=== PATIENT | female | born 1940 | race Caucasian/White ===

== ENCOUNTER → 2019-06-13 13:19 | Outpatient (CLI) | payer MEDICARE, SELFPAY ==
--- NOTE | ~2019-06-13 | MM_ITS ---
EXAMINATION: MM screening [facility] BI w autumn HISTORY: Screening mammogram, history of left breast cancer TECHNIQUE: Craniocaudal and mediolateral oblique 3-D tomosynthesis images were obtained and synthetic 2-D images were generated. CAD analysis was submitted and interpreted. COMPARISON: 07/26/2017, 07/08/2016, 07/02/2015 BREAST PARENCHYMAL COMPOSITION: There are scattered areas of fibroglandular density. FINDINGS: Scattered benign-appearing calcifications are present. There is no evidence of suspicious m ass, calcification, or architectural distortion to suggest malignancy in either breast. There has bee n no suspicious interval change. IMPRESSION: 1. No mammographic evidence of malignancy. 2. Recommend routine screening mammography in one year. BI-RADS Category 2: Benign finding(s). Reviewed, dictated and finalized at location A. N HOUSE MANAGER
== END ==
PROVIDERS: PCP Family Medicine Adolescent Medicine; Visit Provider Obstetrics & Gynecology
DX: Z12.31 Encounter for screening mammogram for malignant neoplasm of breast (principal)
CPT/HCPCS: 77063; 77067

== ENCOUNTER 2020-03-11 01:30 | Outpatient (CLI) | payer MEDICARE, SELFPAY ==
[2020-03-11 20:50] LABS: SARS-CoV-2 RNA PCR Negative
== END 2020-03-11 01:31 | disposition home or self-care (01) ==
LOC: ANHCOVIDDT 01:32
PROVIDERS: PCP Family Medicine Adolescent Medicine; Visit Provider Internal Medicine Gastroenterology
DX: Z01.812 Encounter for preprocedural laboratory examination (principal); Z20.828 Contact with and (suspected) exposure to other viral communicable diseases
CPT/HCPCS: 87635; C9803; U0003

== ENCOUNTER 2020-03-13 01:49 | Day surgery (SDC) | payer MEDICARE, SELFPAY ==
[2020-03-06 12:46] VITALS: BMI 26.8
[2020-03-13 08:47] VITALS: BP 118/58; PULSE 76; RESP 16; TEMP 36.1; O2SAT 100
--- NOTE | 2020-03-13 08:51 | WPDANESEPPF ---
Anes - Initial Pre Proc Eval Procedure: Operation Date: 03/13/20 09:30 Proposed Procedures p Esophagogastroduodenoscopy & Colonoscopy - Eric Granados MD Date/Time: 03/13/20 08:51 Surgeon: Eric Granados MD Pre Op Diagnosis: Iron Deficient Anemia Patient Data Age: 79 Gender: F Height: 1.63 m Weight: 69.2 kg Last Vital Signs Temp 36.1 C L 03/13/20 08:47 Pulse 76 03/13/20 08:47 Resp 16 03/13/20 08:47 BP 118/58 L 03/13/20 08:47 Pulse Ox 100 03/13/20 08:47 Allergies Allergy/AdvReac Type Severity Reaction Status Date / Time No Known Allergies Allergy Verified 03/13/20 08:45 Home Medications Medication Instructions Recorded Confirmed Type acyclovir 200 mg PO BID 03/06/20 03/06/20 History amiodarone [Pacerone] 100 mg PO BID 03/06/20 03/06/20 History apixaban [Eliquis] 5 mg PO BID 03/06/20 03/06/20 History azathioprine [Imuran] 75 mg PO DAILY 03/06/20 03/06/20 History azithromycin [Zithromax] 250 mg PO 3XW 03/06/20 03/06/20 History metoprolol tartrate 25 mg PO DAILY 03/06/20 03/06/20 History pantoprazole [Protonix] 40 mg PO DAILY 03/06/20 03/06/20 History prednisone 7.5 mg PO DAILY 03/06/20 03/06/20 History simvastatin [Zocor] 20 mg PO DAILY 03/06/20 03/06/20 History sulfamethoxazole-trimethoprim 1 tablet PO 3XW 03/06/20 03/06/20 History [Bactrim DS] tacrolimus 0.5 mg PO BID 03/06/20 03/06/20 History Patient hx anesthesia problems: none Family hx anesthesia problems: none PMFSH Past Medical History Medical History (Updated 03/13/20 @ 09:01 by Júnior Stallworth MD) Atrial flutter Breast CA Chronic GERD HTN (hypertension) Hypercholesterolemia Immunosuppressed status Overweight (BMI 25.0-29.9) Skin cancer Surgical History Surgical History (Updated 03/13/20 @ 09:01 by Júnior Stallworth MD) Lung transplant status, bilateral Social History Social History Substance use type: does not use Living arrangements: with family Gender identity (if verbalized by the patient): Female Spiritual care concerns: No Anes - Eval Final PreProcedure Day of Procedure 03/13/20 08:51 Patient weight: overweight Heart: regular rate and rhythm Lungs: clear to auscultation and normal air movement Airway: Mallampati scale class II Neurological: alert and oriented Last oral intake: >/= 8 hours ASA classification: III Emergent: no Anesthetic plan: proceed Anesthesia type and monitoring: general GIVS Informed Consent: The patient's anesthetic plan and its attendant risks and benefits were discussed with the patient/family/POA. Questions were solicited and answers provided to the satisfaction of the patient/family/POA.
[2020-03-13] MEDS: LACTATED RINGERS 1,000 ML 150 ML IV CONT (09:14)
--- NOTE | 2020-03-13 09:14 | WPDGICN ---
Assessment and Plan Assessment and plan (1) Anemia: Code(s): D64.9 - Anemia, unspecified Status: Acute Assessment and Plan: Patient has anemia which is progressive and persistent. No obvious signs of blood loss. GI endoscopy is requested to exclude internal bleeding. Patient has a risk factor of Eliquis anticoagulation. But no obvious bleeding described. Stool Hemoccult advised if GI endoscopy unremarkable. (2) Atrial flutter: Code(s): I48.92 - Unspecified atrial flutter Status: Acute Assessment and Plan: Eliquis anticoagulation will be held prior to endoscopy. (3) Lung transplant status, bilateral: Code(s): Z94.2 - Lung transplant status Status: Acute (4) Immunosuppressed status: Code(s): D84.9 - Immunodeficiency, unspecified Status: Acute GI Consult Note Consult date/time: 03/13/20 09:14 HPI: Loren Wells is a 79 year old female Seen in evaluation at the request of Dr. Kishan Garcia. Patient has a history of progressive anemia and for this reason I have been consulted. Patient denies any obvious blood in her stools. She most recent transfusion several weeks ago was accomplished. There has been a steady decline in hemoglobin since that time she denies any nose bleeds. She denies any bruises. She denies abdominal pain. Past medical history is significant for pulmonary fibrosis. She underwent a lung transplant 2015. She is on various immunosuppressant agents. Additionally she is on Eliquis for atrial flutter. Review of Systems Review of Systems: All systems reviewed & are unremarkable except as noted in HPI and below PMFSH Past Medical History Medical History Atrial flutter Breast CA Chronic GERD HTN (hypertension) Hypercholesterolemia Immunosuppressed status Overweight (BMI 25.0-29.9) Skin cancer Surgical History Surgical History (Updated 03/13/20 @ 09:01 by Júnior Stallworth MD) Lung transplant status, bilateral Social History Social History Substance use type: does not use Living arrangements: with family Gender identity (if verbalized by the patient): Female Spiritual care concerns: No Meds Home Medications and Allergies Home Medications Medication Instructions Recorded Confirmed Type acyclovir 200 mg PO BID 03/06/20 03/06/20 History amiodarone [Pacerone] 100 mg PO BID 03/06/20 03/06/20 History apixaban [Eliquis] 5 mg PO BID 03/06/20 03/06/20 History azathioprine [Imuran] 75 mg PO DAILY 03/06/20 03/06/20 History azithromycin [Zithromax] 250 mg PO 3XW 03/06/20 03/06/20 History metoprolol tartrate 25 mg PO DAILY 03/06/20 03/06/20 History pantoprazole [Protonix] 40 mg PO DAILY 03/06/20 03/06/20 History prednisone 7.5 mg PO DAILY 03/06/20 03/06/20 History simvastatin [Zocor] 20 mg PO DAILY 03/06/20 03/06/20 History sulfamethoxazole-trimethoprim 1 tablet PO 3XW 03/06/20 03/06/20 History [Bactrim DS] tacrolimus 0.5 mg PO BID 03/06/20 03/06/20 History Allergies Allergy/AdvReac Type Severity Reaction Status Date / Time No Known Allergies Allergy Verified 03/13/20 08:45 Vital Signs Vital Signs - 24 hr 03/13/20 08:47 Temperature 97.0 F L Pulse Rate 76 Respiratory Rate 16 Blood Pressure 118/58 L Pulse Oximetry 100 Exam Narrative: Exam Narrative: Physical exam reveals her to be alert. Vital signs stable. HEENT exam unremarkable. Lungs are clear to auscultation and percussion. Heart is without murmur or extra sounds. Abdominal exam bowel sounds are present soft nontender with no organomegaly. Digital external rectal exam normal.
[2020-03-13 10:10] VITALS: BP 112/57; PULSE 54; RESP 18; O2SAT 100
[2020-03-13 10:20] VITALS: BP 136/61; PULSE 58; RESP 20; O2SAT 100
== END 2020-03-13 10:51 | disposition home or self-care (01) ==
PROVIDERS: PCP Family Medicine Adolescent Medicine; Visit Provider Internal Medicine Gastroenterology
PROC: 0DJ08ZZ Inspection of Upper Intestinal Tract, Via Natural or Artificial Opening Endoscopic (ICD-10-PCS; CPT 43235; principal; 2020-03-13 09:30)
DX: C18.3 Malignant neoplasm of hepatic flexure (principal); D50.9 Iron deficiency anemia, unspecified; D12.3 Benign neoplasm of transverse colon; D12.5 Benign neoplasm of sigmoid colon; K63.5 Polyp of colon; K57.30 Diverticulosis of large intestine without perforation or abscess without bleeding; K64.8 Other hemorrhoids; I48.92 Unspecified atrial flutter; I10 Essential (primary) hypertension; E78.00 Pure hypercholesterolemia, unspecified; K21.9 Gastro-esophageal reflux disease without esophagitis; D84.9 Immunodeficiency, unspecified; Z85.3 Personal history of malignant neoplasm of breast; Z79.01 Long term (current) use of anticoagulants; Z94.2 Lung transplant status
CPT/HCPCS: 45380; 45381; 45385; 43235; 88305; J2704; J7120

== ENCOUNTER → 2020-03-26 11:20 | Outpatient (CLI) | payer MEDICARE, SELFPAY ==
[2020-03-26 11:45] LABS: Estimated Glomerular Filt Rate 15
== END ==
PROVIDERS: PCP Family Medicine Adolescent Medicine; Visit Provider Surgery
DX: C18.3 Malignant neoplasm of hepatic flexure (principal)
CPT/HCPCS: 99199

== ENCOUNTER → 2020-03-27 13:25 | Outpatient (CLI) | payer MEDICARE, SELFPAY ==
--- NOTE | ~2020-03-27 | CT_ITS ---
EXAMINATION: CT chest abdomen pelvis wo con DATE: 03/27/2020 13:46 INDICATION: Staging of malignant neoplasm of hepatic flexure of colon. History of breast cancer. TECHNIQUE: Computed tomography (CT) of the chest, abdomen, and pelvis was performed without intraveno us contrast. Automated exposure control and iterative reconstruction technique were employed. Exam do se: 766.71 mGy-cm total exam DLP. COMPARISON: 05/07/2010 PET/CT scan FINDINGS: CHEST CT: There is bilateral apical linear and reticular fibrotic change. No pulmonary mass lesion or pulmonary infiltrate or consolidation is evident. Cardiomegaly. Coronary artery calcification. No pericardial effusion. There is aortic calcification but no thoracic aortic aneurysm. No hilar or mediastinal mass lesion or lymphadenopathy. There are 2 sternal wire sutures at a displaced fracture of the lower sternal body near the xiphoid p rocess. ABDOMEN/PELVIS CT: There is hyperdensity of the hepatic parenchyma measuring up to 85 Hounsfield units, consistent with hemochromatosis. Splenic density by comparison is approximately 51 Hounsfield units. No hepatic space-occupying mass lesion. The gallbladder is present. No gallbladder wall thickening or pericholecystic fluid or fat stranding. No bile duct or pancreatic duct dilatation. No pancreatic ma ss lesion or calcification is evident. Normal splenic size. Normal morphology of the adrenal glands. No renal mass lesion. No urinary tract calculus or hydroureteronephrosis. There is calcification of the abdominal aorta and at the origins of the celiac and superior mesenteri c and renal arteries. No abdominal aortic aneurysm. There is calcification of the iliac arteries. No intraperitoneal or retroperitoneal or pelvic mass lesion or adenopathy or ascites is detected. The uterus, adnexa and urinary bladder are unremarkable although bladder evaluation is limited due to nearly complete evacuation. Normal appendix. Mild diverticulosis of the sigmoid colon. No CT evidence of diverticulitis. There is some soft tissue apparent thickening at the hepatic flexure the colon which may be consisten t with the clinically reported malignant neoplasm of the hepatic flexure of the colon. Otherwise no b owel wall thickening, pneumatosis or intraperitoneal free air is evident. There are scattered small b owel air-fluid levels but no small bowel dilatation or obstruction is detected. No suspicious osteolytic or osteoblastic lesions are noted. There are degenerative changes of the cervical, thoracic and lumbar spine including moderately severe degenerative disease at L5-S1 in particular. IMPRESSION: Soft tissue thickening at the hepatic flexure colon may correspond to the clinical repor nitin malignant neoplasm of the hepatic flexure of the colon. No metastatic disease is evident. Diverticulosis of the sigmoid colon; no CT evidence of diverticulitis Hemachromatosis of the liver Cardiomegaly, coronary artery and aortic calcification Reviewed, dictated and finalized at Location A. Reviewed, dictated and finalized at location B. RTMENT CHAIRPERSON IMPRESSION: Soft tissue thickening at the hepatic flexure colon may correspond to the clinical reported malignant neoplasm of the hepatic flexure of the colo n. No metastatic disease is evident. Diverticulosis of the sigmoid colon; no CT evidence of diverticulitis Hemachromatosis of the liver Cardiomegaly, coronary artery and aortic calcification
== END ==
PROVIDERS: PCP Family Medicine Adolescent Medicine; Visit Provider Surgery
DX: C18.3 Malignant neoplasm of hepatic flexure (principal); K57.30 Diverticulosis of large intestine without perforation or abscess without bleeding; I51.7 Cardiomegaly
CPT/HCPCS: 71250; 74176

== ENCOUNTER → 2020-08-21 13:32 | Outpatient (CLI) | payer MEDICARE, SELFPAY ==
--- NOTE | ~2020-08-21 | MM_ITS ---
EXAMINATION: MM screening [facility] BI w autumn HISTORY: Screening TECHNIQUE: Craniocaudal and mediolateral oblique 3-D tomosynthesis images were obtained and synthetic 2-D images were generated. CAD analysis was submitted and interpreted. COMPARISON: Comparison to multiple prior studies sequentially, with oldest reviewed study dated 07/01. BREAST PARENCHYMAL COMPOSITION: There are scattered areas of fibroglandular density. FINDINGS: There are developing clustered calcifications mid posterior aspect of the right breast on C C view and lower outer quadrant of the left breast. There are lumpectomy changes in the left breast. IMPRESSION: 1. Developing clustered coarse calcifications in both breasts. 2. Spot magnification views recommended. BI-RADS Category 0: Incomplete: Needs additional imaging evaluation. Reviewed, dictated and finalized at location A.
== END ==
PROVIDERS: PCP Family Medicine Adolescent Medicine; Visit Provider Obstetrics & Gynecology
DX: Z12.31 Encounter for screening mammogram for malignant neoplasm of breast (principal); R92.8 Other abnormal and inconclusive findings on diagnostic imaging of breast
CPT/HCPCS: 77063; 77067

== ENCOUNTER → 2020-09-22 07:44 | Outpatient (CLI) | payer MEDICARE, SELFPAY ==
--- NOTE | ~2020-09-22 | MM_ITS ---
EXAMINATION: MM diagnostic mammo BI HISTORY: Follow-up bilateral breast calcifications TECHNIQUE: Additional 3-D tomosynthesis images of the breasts were performed and synthetic 2-D images were generated. CAD analysis was submitted and interpreted. COMPARISON: Comparison to multiple prior studies sequentially, with oldest reviewed study dated 07/02. BREAST PARENCHYMAL COMPOSITION: Breast composed of scattered areas of fibroglandular density. FINDINGS: There are clustered coarse calcifications in the lower outer quadrant of the left breast an d central posterior aspect of the right breast on CC view, medially which have an actual appearance. These are likely benign dystrophic calcifications. IMPRESSION: 1. Probable benign bilateral breast calcifications. 2. 6 month follow-up diagnostic bilateral mammogram is recommended. BI-RADS category 3, probably benign findings. Reviewed, dictated and finalized at location A.
== END ==
PROVIDERS: PCP Family Medicine Adolescent Medicine; Visit Provider Obstetrics & Gynecology
DX: R92.1 Mammographic calcification found on diagnostic imaging of breast (principal)
CPT/HCPCS: 77066

== ENCOUNTER 2021-03-10 00:56 | Day surgery (SDC) | payer MEDICARE, SELFPAY ==
[2021-02-23 14:09] VITALS: BMI 24.0
[2021-03-10 07:53] VITALS: BP 149/77; PULSE 73; RESP 20; TEMP 36.3; O2SAT 99
[2021-03-10] MEDS: LACTATED RINGERS 1,000 ML 150 ML IV CONT (07:55)
--- NOTE | 2021-03-10 07:57 | WPDANESEPPF ---
Anes - Initial Pre Proc Eval Procedure: Operation Date: 03/10/21 08:45 Proposed Procedures p Colonoscopy - Eric Granados MD Date/Time: 03/10/21 07:57 Surgeon: Eric Granados MD Pre Op Diagnosis: hx of colon ca Patient Data Age: 80 Gender: F Height: 1.6 m Weight: 60.4 kg Last Vital Signs Temp 36.3 C L 03/10/21 07:53 Pulse 73 03/10/21 07:53 Resp 20 03/10/21 07:53 BP 149/77 H 03/10/21 07:53 Pulse Ox 99 03/10/21 07:53 Allergies Allergy/AdvReac Type Severity Reaction Status Date / Time No Known Allergies Allergy Verified 03/10/21 07:30 Home Medications Medication Instructions Recorded Confirmed Type acyclovir 200 mg PO BID 03/06/20 02/23/21 History apixaban [Eliquis] 5 mg PO BID 03/06/20 02/23/21 History metoprolol tartrate 25 mg PO DAILY 03/06/20 02/23/21 History pantoprazole [Protonix] 40 mg PO DAILY 03/06/20 02/23/21 History prednisone 7.5 mg PO DAILY 03/06/20 02/23/21 History sulfamethoxazole-trimethoprim 1 tablet PO 3XW 03/06/20 02/23/21 History [Bactrim DS] tacrolimus 0.5 mg PO BID 03/06/20 02/23/21 History Patient hx anesthesia problems: none Family hx anesthesia problems: none Results Review: All pre-operative results and documents have been reviewed as part of the pre-operative evaluation. [facility] Past Medical History Medical History Anemia recieves iron infusions weekly Atrial flutter Breast CA Chronic GERD History of blood transfusion HTN (hypertension) Hypercholesterolemia Immunosuppressed status Overweight (BMI 25.0-29.9) Skin cancer Surgical History Surgical History History of lumpectomy left breast Lung transplant status, bilateral Family History Family History Mother Diabetes mellitus Sibling Diabetes mellitus Social History Social History (Reviewed 03/20/20 @ 16:25 by THERESA Helton Smoking status: Never smoker Alcohol intake: never Substance use: never Substance use type: does not use Living arrangements: with family Gender identity (if verbalized by the patient): Female Spiritual care concerns: No Anes - Eval Final PreProcedure Day of Procedure 03/10/21 07:57 Patient weight: normal Heart: regular rate and rhythm Lungs: clear to auscultation and normal air movement Airway: Mallampati scale class II Neurological: alert and oriented Last oral intake: >/= 8 hours ASA classification: III Emergent: no Anesthetic plan: proceed Anesthesia type and monitoring: general GIVS Results Review: All pre-operative results and documents have been reviewed as part of the pre-operative evaluation. Informed Consent: The patient's anesthetic plan and its attendant risks and benefits were discussed with the patient/family/POA. Questions were solicited and answers provided to the satisfaction of the patient/family/POA.
--- NOTE | 2021-03-10 08:37 | WPDGICN ---
Assessment and Plan Assessment and plan (1) History of colon cancer: Code(s): Z85.038 - Personal history of other malignant neoplasm of large intestine Status: Acute Assessment and Plan: Patient has a history of colon cancer resected in April of 2020. Plan is for surveillance colonoscopy now and at intervals in the future. (2) Lung transplant status, bilateral: Code(s): Z94.2 - Lung transplant status Status: Acute GI Consult Note Consult date/time: 03/10/21 08:37 HPI: Loren Wells is a 80 year old female Presents for surveillance colonoscopy. Patient has a distant history of bilateral lung transplant 2016 because of pulmonary fibrosis. One year ago in March was identified as having colon cancer. Patient subsequently underwent colon surgery by Dr. Patel. She has done well since that time. She presents today for follow-up colonoscopy. Patient reports that her current weight appetite bowel movements are normal. She denies abdominal pain. She has had no bleeding. Family history is noncontributory. Review of Systems Review of Systems: All systems reviewed & are unremarkable except as noted in HPI and below PMFSH Past Medical History Medical History Anemia recieves iron infusions weekly Atrial flutter Breast CA Chronic GERD History of blood transfusion HTN (hypertension) Hypercholesterolemia Immunosuppressed status Overweight (BMI 25.0-29.9) Skin cancer Surgical History Surgical History History of lumpectomy left breast Lung transplant status, bilateral Family History Family History Mother Diabetes mellitus Sibling Diabetes mellitus Social History Social History Smoking status: Never smoker Alcohol intake: never Substance use: never Substance use type: does not use Living arrangements: with family Gender identity (if verbalized by the patient): Female Spiritual care concerns: No Meds Home Medications and Allergies Home Medications Medication Instructions Recorded Confirmed Type acyclovir 200 mg PO BID 03/06/20 02/23/21 History apixaban [Eliquis] 5 mg PO BID 03/06/20 02/23/21 History metoprolol tartrate 25 mg PO DAILY 03/06/20 02/23/21 History pantoprazole [Protonix] 40 mg PO DAILY 03/06/20 02/23/21 History prednisone 7.5 mg PO DAILY 03/06/20 02/23/21 History sulfamethoxazole-trimethoprim 1 tablet PO 3XW 03/06/20 02/23/21 History [Bactrim DS] tacrolimus 0.5 mg PO BID 03/06/20 02/23/21 History Allergies Allergy/AdvReac Type Severity Reaction Status Date / Time No Known Allergies Allergy Verified 03/10/21 07:30 Vital Signs Vital Signs - 24 hr 03/10/21 07:53 Temperature 97.4 F L Pulse Rate 73 Respiratory Rate 20 Blood Pressure 149/77 H Pulse Oximetry 99 Exam Narrative: Physical exam reveals patient be alert. Vital signs stable. HEENT exam is unremarkable. Patient is anicteric. Lungs are clear to auscultation and percussion. Heart is without murmur or extra sounds. Abdominal exam bowel sounds present soft nontender with no hepatosplenomegaly. Digital external rectal exam is normal.
[2021-03-10 09:07] VITALS: BP 96/53; PULSE 62; RESP 20; O2SAT 99
[2021-03-10 09:17] VITALS: BP 104/57; PULSE 61; RESP 22; O2SAT 100
[2021-03-10 09:27] VITALS: BP 127/66; PULSE 63; RESP 15; O2SAT 100
== END 2021-03-10 09:34 | disposition home or self-care (01) ==
PROVIDERS: PCP Family Medicine Adolescent Medicine; Visit Provider Internal Medicine Gastroenterology
PROC: 0DJD8ZZ Inspection of Lower Intestinal Tract, Via Natural or Artificial Opening Endoscopic (ICD-10-PCS; CPT 45378; principal; 2021-03-10 08:45)
DX: Z12.11 Encounter for screening for malignant neoplasm of colon (principal); Z85.038 Personal history of other malignant neoplasm of large intestine; K64.8 Other hemorrhoids; K57.30 Diverticulosis of large intestine without perforation or abscess without bleeding; K63.5 Polyp of colon; Z94.2 Lung transplant status; D50.9 Iron deficiency anemia, unspecified; K21.9 Gastro-esophageal reflux disease without esophagitis; I10 Essential (primary) hypertension; E78.00 Pure hypercholesterolemia, unspecified; D84.9 Immunodeficiency, unspecified; Z85.3 Personal history of malignant neoplasm of breast; Z79.01 Long term (current) use of anticoagulants; I48.92 Unspecified atrial flutter
CPT/HCPCS: 45385; 88305; J7120

== ENCOUNTER → 2021-03-25 09:22 | Outpatient (CLI) | payer MEDICARE, SELFPAY ==
--- NOTE | ~2021-03-25 | MM_ITS ---
EXAMINATION: MM diagnostic [facility] BI w autumn HISTORY: Six-month follow-up for probably benign bilateral breast calcifications TECHNIQUE: Craniocaudal, mediolateral, and mediolateral oblique 3-D tomosynthesis images of the breas ts were performed and synthetic 2-D images were generated. Magnification views of the breasts were al so obtained. CAD analysis was submitted and interpreted. COMPARISON: 09/22/2020, 08/21/2020, 06/13/2019 BREAST PARENCHYMAL COMPOSITION: There are scattered areas of fibroglandular density. FINDINGS: There are stable dystrophic appearing calcifications in the far posterior third of both belkis asts at the 6:00 location. There has been no suspicious interval change. No associated mass or shiv ectural distortion is identified. In addition, there are no new areas of mass, architectural distorti on, or suspicious calcification in either breast. Lumpectomy changes and axillary lymph node dissecti on are noted on the left. IMPRESSION: 1. Stable, probably benign bilateral breast calcifications. 2. Recommend 6 month follow-up bilateral diagnostic mammogram. BI-RADS category 3, probably benign findings. Reviewed, dictated and finalized at location A. HOUSE WORKER
== END ==
PROVIDERS: PCP Family Medicine Adolescent Medicine; Visit Provider Obstetrics & Gynecology
DX: N64.89 Other specified disorders of breast (principal); R92.8 Other abnormal and inconclusive findings on diagnostic imaging of breast
CPT/HCPCS: 77062; 77066; G0279

== ENCOUNTER 2021-05-22 13:53 | Emergency (ER) | payer MEDICARE, SELFPAY ==
[2021-05-22 14:02] VITALS: BP 183/78; PULSE 88; RESP 20; TEMP 36.5; O2SAT 99
--- NOTE | 2021-05-22 14:16 | ED.BACK ---
HPI - Back Pain/Injury General Chief Complaint: Back Pain/Injury Stated Complaint: Back Pain Time Seen by Provider: 05/22/21 14:16 Source: patient and RN notes reviewed Mode of arrival: ambulatory Limitations: no limitations History of Present Illness HPI Narrative: 81-year-old female presents with concern for low back pain. Reports her back pain started several weeks ago and she began seeing a chiropractor who told her she had sciatica, she had a negative x-ray at the chiropractor. Reports throughout her course of treatment with the chiropractor her symptoms have worsened. Reports she has needed to use a walker for mobility since seeing a chiropractor. Patient reports she is a double lung transplant patient and followed up with her transplant physician who recommended she be seen and recommended cyclobenzaprine. Patient denies loss of bowel or bladder function, abdominal pain, fever MD elicited complaint: back pain Related Data Home Medications Medication Instructions Recorded Confirmed acyclovir 200 mg PO BID 03/06/20 05/22/21 apixaban [Eliquis] 5 mg PO BID 03/06/20 05/22/21 metoprolol tartrate 25 mg PO DAILY 03/06/20 05/22/21 pantoprazole [Protonix] 40 mg PO DAILY 03/06/20 05/22/21 prednisone 7.5 mg PO DAILY 03/06/20 05/22/21 sulfamethoxazole-trimethoprim 1 tablet PO 3XW 03/06/20 05/22/21 [Bactrim DS] tacrolimus 0.5 mg PO BID 03/06/20 05/22/21 amoxicillin 500 mg PO DAILY 05/22/21 05/22/21 azathioprine 50 mg PO DAILY 05/22/21 05/22/21 cholecalciferol (vitamin D3) 10 mcg PO DAILY 05/22/21 05/22/21 Allergies Allergy/AdvReac Type Severity Reaction Status Date / Time NSAIDS (Non-Steroidal AdvReac Other Verified 05/22/21 14:35 Anti-Inflamma Review of Systems Review of Systems: CONSTITUTIONAL: Denies malaise, chills, sweats, or fever. CARDIOVASCULAR: Denies chest pain, palpitations, or edema. RESPIRATORY: Denies cough or dyspnea. GASTROINTESTINAL: Denies abdominal pain, nausea, vomiting, diarrhea, loss of bowel function GENITOURINARY: Denies dysuria, hematuria, frequency, loss of bladder function. SKIN: Denies rash or itching. MUSCULOSKELETAL: Reports low back pain NEUROLOGIC: Denies numbness, weakness, or headache. All systems reviewed & are unremarkable except as noted in HPI and below PMFSH Past Medical History Medical History Anemia recieves iron infusions weekly Atrial flutter Breast CA Chronic GERD History of blood transfusion HTN (hypertension) Hypercholesterolemia Immunosuppressed status Overweight (BMI 25.0-29.9) Skin cancer Surgical History Surgical History History of lumpectomy left breast Lung transplant status, bilateral Family History Family History Mother Diabetes mellitus Sibling Diabetes mellitus Social History Social History Smoking status: Never smoker Alcohol intake: never Substance use: never Substance use type: does not use Gender identity (if verbalized by the patient): Female Spiritual care concerns: No Comments At time of signature, agree with nursing past medical, surgical, social and family history. There is no relevant family history pertinent to the presenting complaint Exam Narrative: GENERAL: Well-appearing, well-nourished, and in no acute distress. HEAD: Normocephalic, atraumatic. EYES: PERRLA and EOMI. NECK: Supple. No lymphadenopathy. CHEST: Clear to auscultation. No respiratory distress. HEART: Regular rate and rhythm. Distal pulses palpable and equal, cap refill <3 seconds ABDOMEN: Soft, nontender, nondistended, normal active bowel sounds, no palpable or pulsatile masses. No CVA tenderness MUSCULOSKELETAL: Normal range of motion and strength in all extremities; 5/5 strength with hip flexion and extension, dorsiflexio
== END 2021-05-22 15:00 | disposition home or self-care (01) ==
PROVIDERS: Emergency Provider Nurse Practitioner; PCP Family Medicine Adolescent Medicine
DX: M54.50 Low back pain, unspecified (principal); D64.9 Anemia, unspecified; I48.92 Unspecified atrial flutter; Z85.3 Personal history of malignant neoplasm of breast; I10 Essential (primary) hypertension; E78.00 Pure hypercholesterolemia, unspecified; Z85.828 Personal history of other malignant neoplasm of skin
CPT/HCPCS: 99213; G0463

== ENCOUNTER 2021-05-25 10:12 | Emergency (ER) | payer MEDICARE, SELFPAY ==
--- NOTE | ~2021-05-25 | CT_ITS ---
EXAMINATION: CT lumbar spine wo con EXAM DATE: 05/25/2021 12:53 INDICATION: Low back pain. TECHNIQUE: Spiral CT of the lumbar spine was performed without contrast. Axial, coronal and sagittal images lumbar spine were reviewed. The dose-length product (DLP) for this examination was 446.40 mG y-cm. The exposure was tailored according to patient size (auto mA exposure control), and iterative reconstruction (ASIR) was used as additional dose reduction technique. There is no prior lumbar CT for comparison. FINDINGS: There is sacral fracture at the S1-S2 junction identified on the sagittal sequence, involvi ng both sacral ala, which was not present on a prior CT abdomen pelvis scan from March. Could be a cute or early subacute fracture, without sclerosis identified. Consider insufficiency fracture if pat ient has no history of trauma. There is mild to moderate disc disease at L5-S1, mild disc disease at the other thoracolumbar levels. There is moderate lumbar facet arthropathy from L3 through S1, mild at the other thoracolumbar level s. Mild lower lumbar central canal and neural foraminal stenosis. The vertebral bodies are aligned in the AP dimension. Paraspinal soft tissue is unremarkable. IMPRESSION: 1. Bilateral sacral ala acute to early subacute insufficiency fractures. 2. Mild to moderate lumbar spondylosis. Reviewed, dictated and finalized at location G. RVISOR LENS GENERATING
[2021-05-25 10:50] VITALS: BP 136/84; PULSE 99; RESP 18; TEMP 36.6; O2SAT 100
[2021-05-25 11:50] VITALS: BP 136/84; PULSE 99; RESP 18; O2SAT 100
--- NOTE | 2021-05-25 12:02 | ED.BACK ---
HPI - Back Pain/Injury General Chief Complaint: Back Pain/Injury Stated Complaint: low back pain Time Seen by Provider: 05/25/21 11:54 Source: patient Mode of arrival: ambulatory Limitations: no limitations History of Present Illness HPI Narrative: Patient is 81 years old white female presents with pain across lumbar area started 1 month ago. Patient is telling me that 1 month ago was trying to go up 1 step and felt something in her back. Gradually getting worse. Patient been seen by urgent care and the chiropractor without major improvement. Currently patient on hydrocodone and Flexeril. Patient started using a walker over the last 2 to 3 weeks. Pain gets worse with standing, walking or any movement, gets better if she remaining still. Patient denies any fever, chills, nausea, vomiting, diarrhea, constipation, abdominal pain, chest pain, shortness of breath. Patient lives with her , came to the emergency room by private car. History of hypertension, lung transplantation 5 years ago. Related Data Home Medications Medication Instructions Recorded Confirmed acyclovir 200 mg PO BID 03/06/20 05/22/21 apixaban [Eliquis] 2.5 mg PO BID 03/06/20 05/22/21 metoprolol tartrate 25 mg PO DAILY 03/06/20 05/22/21 pantoprazole [Protonix] 40 mg PO DAILY 03/06/20 05/22/21 prednisone 7.5 mg PO DAILY 03/06/20 05/22/21 sulfamethoxazole-trimethoprim 1 tablet PO 3XW 03/06/20 05/22/21 [Bactrim DS] tacrolimus 0.5 mg PO BID 03/06/20 05/22/21 amoxicillin 500 mg PO DAILY 05/22/21 05/22/21 azathioprine 50 mg PO DAILY 05/22/21 05/22/21 cholecalciferol (vitamin D3) 10 mcg PO DAILY 05/22/21 05/22/21 Allergies Allergy/AdvReac Type Severity Reaction Status Date / Time NSAIDS (Non-Steroidal AdvReac Other Verified 05/25/21 11:53 Anti-Inflamma Review of Systems Review of Systems: CONSTITUTIONAL: Denies fever, chills, or sweats. EYES: Denies visual changes, redness, or discharge. ENT: Denies rhinorrhea, congestion, sore throat, or otalgia. CARDIOVASCULAR: Denies chest pain, palpitations, or edema. RESPIRATORY: Denies cough or dyspnea. GASTROINTESTINAL: Denies abdominal pain, nausea, vomiting, or diarrhea. GENITOURINARY: Denies dysuria or hematuria. SKIN: Denies rash or itching. MUSCULOSKELETAL: Lower back pain NEUROLOGIC: Denies headache, numbness, or weakness. PSYCHIATRIC: Denies anxiety or depression. PMFSH Past Medical History Medical History Anemia recieves iron infusions weekly Atrial flutter Breast CA Chronic GERD History of blood transfusion HTN (hypertension) Hypercholesterolemia Immunosuppressed status Overweight (BMI 25.0-29.9) Skin cancer Surgical History Surgical History History of lumpectomy left breast Lung transplant status, bilateral Family History Family History Mother Diabetes mellitus Sibling Diabetes mellitus Social History Social History Smoking status: Never smoker Alcohol intake: never Substance use: never Substance use type: does not use Gender identity (if verbalized by the patient): Female Spiritual care concerns: No Exam Narrative: General appearance: Well-developed, well-nourished Skin: Normal color Head: Normocephalic, nontraumatic Eyes: Clear conjunctiva ENT: Oropharynx normal, ears normal, nose normal Neck: Supple, nontender Chest and respiratory: Airway patent, no respiratory distress, no accessory muscle use Heart: Regular rate/rhythm Abdomen: Soft, nontender, no organomegaly, quiet bowel sounds Vascular: Normal peripheral pulses, normal capillary refill. Musculoskeletal: Mild limited range of motion of the back at the lumbar area, no bruises, no swelling, no rash, no focal tenderness. Neurologic: Alert and oriented ?3, BOSOM PRESSER is normal as tested, no gross motor de
[2021-05-25] MEDS: ONDANSETRON INJ 4 MG/2 ML VIAL IV PUSH (13:00)
[2021-05-25] MEDS: MORPHINE SULFATE (*CRX) 4 MG/ML INJ IV PUSH (13:00)
[2021-05-25 13:05] VITALS: BP 143/77; PULSE 89; RESP 14; O2SAT 99
[2021-05-25 13:08] LABS: Hematocrit 34.1 % (37.0-47.0); Hemoglobin 11.1 g/dL (12.0-15.0); Immature Granulocyte Percent A 1.1 % (0-0.5); Lymphocytes Absolute Auto 0.24 K/mm3 (0.9-3.2); Lymphocytes Percent Auto 2.6 % (18.3-44.2); Mean Corpuscular HGB Conc 32.6 g/dl (32-36); Mean Corpuscular Hemoglobin 30.9 pg (26-34); Mean Platelet Volume 9.3 fl (7.4-10.4); Monocytes Absolute Auto 0.6 K/mm3 (0.1-0.6); Neutrophils Absolute Auto 8.3 K/mm3 (1.3-6.7); Neutrophils Percent Auto 90.3 % (45.5-73.1); Platelet Count Result 224 k/mm3 (150-375); Red Blood Count 3.59 M/mm3 (4.2-5.4); Red Cell Distribution Width 13.4 % (11.5-14.5); White Blood Count 9.2 K/mm3 (4.5-10.0)
[2021-05-25 13:09] VITALS: O2SAT 95
[2021-05-25 13:15] LABS: Alanine Aminotransferase 23 U/L (4-35); Albumin Level 3.9 g/dL (3.5-5.1); Alkaline Phosphatase 114 U/L (38-126); Anion Gap 12 mmol/L (8-16); Aspartate Amino Transferase 37 U/L (14-36); Bilirubin,Total 0.8 mg/dL (0.2-1.3); Blood Urea Nitrogen 52 mg/dL (7-17); Calcium 9.1 mg/dL (8.4-10.2); Carbon Dioxide 20 mmol/L (22-30); Chloride 100 mmol/L (98-107); Estimated CRCL calculation 21 ml/min; Estimated Glomerular Filt Rate 29; Glucose 163 mg/dL (65-110); Potassium 4.7 mmol/L (3.4-5.0); Sodium 132 mmol/L (137-145)
[2021-05-25 13:22] LABS: CRP 4.3 mg/dL (<1.0)
[2021-05-25 13:27] LABS: Ovalocytes 1+ (NORMAL); Platelet Estimate Adequate (Adequate)
[2021-05-25 14:10] LABS: Erythrocyte Sedimentation Rate 80 mm/hr (0-20)
[2021-05-25 14:30] VITALS: BP 137/77; PULSE 76; RESP 20; O2SAT 99
[2021-05-25 14:30] LABS: Add Urine Microscopic? NO; Appearance Urine Clear (Clear); Bilirubin Urine Negative (Negative); Blood Urine Negative (Negative); Color Urine Yellow (Yellow); Glucose Urine UA Negative (Negative); Ketones Urine Negative (Negative); Leukocyte Esterase Ur Negative LEU/UL (Negative); Nitrate Urine Negative (Negative); Protein Urine Negative (Negative); Specific Grav Ur 1.011 (1.001-1.035); Urobilinogen Urine Negative mg/dL (<2.0)
[2021-05-25 16:07] VITALS: BP 141/85; PULSE 82; RESP 22; O2SAT 97
== END 2021-05-25 16:33 | disposition home or self-care (01) ==
PROVIDERS: Emergency Provider Emergency Medicine; PCP Family Medicine Adolescent Medicine
DX: M84.48XA Pathological fracture, other site, initial encounter for fracture (principal); I10 Essential (primary) hypertension; D64.9 Anemia, unspecified; I48.92 Unspecified atrial flutter; Z94.2 Lung transplant status; E78.00 Pure hypercholesterolemia, unspecified; K21.9 Gastro-esophageal reflux disease without esophagitis; E66.3 Overweight; Z68.24 Body mass index [BMI] 24.0-24.9, adult; Z85.3 Personal history of malignant neoplasm of breast; Z85.828 Personal history of other malignant neoplasm of skin; Z79.01 Long term (current) use of anticoagulants; M47.816 Spondylosis without myelopathy or radiculopathy, lumbar region
CPT/HCPCS: 36415; 72131; 80053; 81003; 85025; 85652; 86140; 96374; 96375; 99284; J2270; J2405

== ENCOUNTER 2021-05-27 15:38 | Inpatient (IN) | payer MEDICARE, SELFPAY ==
--- NOTE | ~2021-05-27 | CT_ITS ---
EXAMINATION: CT chest abdomen pelvis w con DATE: 05/30/2021 12:27 INDICATION: Shortness of breath TECHNIQUE: Transaxial computed tomographic images of the chest, abdomen, and pelvis were obtained aft er the administration of 100 cc of Omnipaque 350 intravenous contrast. The dose-length product (DLP) was 745.10 mGy-cm. Automated exposure control and iterative reconstruction technique were employed. COMPARISON: 03/27/2020 FINDINGS: CHEST CT: There are small pleural effusions, right greater than left. Cardiomegaly is noted. There is an unchan ged mildly enlarged right lower paratracheal lymph node, likely reactive. There are diffuse interstit ial and airspace opacities throughout all lung zones, worst in the left lung than the right. There is no pneumothorax. There are surgical clips in the left axilla. There is mild thoracic spondylosis. ABDOMEN/PELVIS CT: The liver, spleen, pancreas, gallbladder, and adrenal glands are normal. The right kidney is unremark able. Cysts of the left kidney measure up to 12 mm. There is calcified atherosclerosis of the aorta a nd many of the other arteries. No pathologically enlarged abdominal or pelvic lymph nodes are identif ied. There is no free intraperitoneal gas or evidence of bowel obstruction. The bladder is partially decompressed by a Pedersen catheter. There are surgical changes of right hemicolectomy. Insufficiency fr actures have developed in the bilateral sacral ala. There is slight anterior subluxation of S1 on S2 which is new since the comparison examination. IMPRESSION: 1. Diffuse lung disease, consistent with pulmonary edema and/or pneumonia. 2. Cardiomegaly. 3. Interval development of bilateral sacral insufficiency fractures with possible unstable fracture a t S1-S2. Reviewed, dictated and finalized at location F. E OPERATOR IMPRESSION: 1. Diffuse lung disease, consistent with pulmonary edema and/or pneumonia. 2. Cardiomegaly. 3. Interval development of bilateral sacral insufficiency fractures with possib le unstable fracture at S1-S2.
--- NOTE | ~2021-05-27 | XR_ITS ---
EXAMINATION: XR chest 1V portable EXAM DATE: 05/28/2021 09:03 INDICATION: Leukocytosis . TECHNIQUE: Portable AP frontal chest x-ray was obtained. Comparison is made to prior examination from 06/08/2010. FINDINGS: Prominent bilateral reticulation, improvement compared to previous examination. Could be mi ld pulmonary edema given cardiomegaly and suspected small pleural effusions. Small amount of left upp er lobe more well-defined airspace disease which could be acute infectious process. Follow-up to [facility] recommended. No interstitial lung disease was suspected on prior CT from 2019. Left axillary s urgical clips. Biapical scarring. There are bony degenerative changes. IMPRESSION: 1. Possible left upper lobe pneumonia. Recommend follow-up x-ray in one month. 2. Cardiomegaly, small pleural effusions and possible mild pulmonary edema. Reviewed, dictated and finalized at location B. RPTION PLANT OPERATOR HELPER
--- NOTE | ~2021-05-27 | CT_ITS ---
EXAMINATION: CT lumbar spine wo con DATE: 05/27/2021 17:52 INDICATION: Low back pain. TECHNIQUE: Computed tomography (CT) of the lumbar spine was performed without intravenous contrast. A utomated exposure control and iterative reconstruction technique were employed. The dose-length produ ct was 322.24 mGy-cm. COMPARISON: CT lumbar spine 05/25/2021 FINDINGS: Again seen are fractures of the bilateral sacral ala, S2 segmenta, bilateral L5 transverse processes, and left L4 transverse process. Vertebral body heights are normal. There is moderately dec reased disc height at L5-S1. The following disc levels are specifically discussed: L1-L2: The disc is bulging. There is mild bilateral facet joint osteoarthritis. There is mild left ne ural foraminal stenosis. There is no central canal stenosis. L2-L3: The disc is bulging. There is severe right and moderate left facet joint osteoarthritis. There is mild bilateral neural foraminal stenosis. There is mild central canal stenosis. L3-L4: The disc is bulging. There is severe bilateral facet joint osteoarthritis. There is mild bilat eral neural foraminal stenosis. There is mild central canal stenosis. L4-L5: The disc is bulging. There is severe right and mild left facet joint osteoarthritis. There is mild bilateral neural foraminal stenosis. There is mild central canal stenosis. L5-S1: The disc is bulging. There is moderate right and severe left facet joint osteoarthritis. There is mild bilateral neural foraminal stenosis. There is mild central canal stenosis. IMPRESSION: 1. Acute/subacute fractures of the bilateral sacral ala, S2 segment, bilateral L5 transverse processe s, and left L4 transverse process again seen. 2. Mild lumbar spondylosis. Reviewed, dictated and finalized at location A. ION STYLING INTERN IMPRESSION: 1. Acute/subacute fractures of the bilateral sacral ala, S2 segment, bilateral L5 transverse processes, and left L4 transverse process again seen. 2. Mild lumbar spondylosis.
[2021-05-27 15:42] VITALS: BP 144/109; PULSE 125; RESP 28; TEMP 36.7; O2SAT 94
[2021-05-27] MEDS: ONDANSETRON INJ 4 MG/2 ML VIAL IV PUSH ×2 (17:31→23:40)
[2021-05-27] MEDS: HYDROmorphone HCL INJ (*CRX) 1 MG/ML SYR 0.5 MG IV PUSH ×2 (17:32→23:41)
[2021-05-27 17:43] LABS: Basophils Percent Auto 0.1 % (0.2-1.2); Eosinophils Percent Auto 0.1 % (0-4.4); Hematocrit 32.6 % (37.0-47.0); Hemoglobin 10.6 g/dL (12.0-15.0); Immature Granulocyte Absolute 0.13 K/mm3 (0.00-0.031); Immature Granulocyte Percent A 0.9 % (0-0.5); Lymphocytes Absolute Auto 0.59 K/mm3 (0.9-3.2); Lymphocytes Percent Auto 4.1 % (18.3-44.2); Mean Corpuscular HGB Conc 32.5 g/dl (32-36); Mean Corpuscular Hemoglobin 30.8 pg (26-34); Mean Corpuscular Volume 94.8 fl (80-100); Mean Platelet Volume 9.3 fl (7.4-10.4); Monocytes Absolute Auto 1.4 K/mm3 (0.1-0.6); Monocytes Percent Auto 9.7 % (2.6-8.5); Neutrophils Absolute Auto 12.1 K/mm3 (1.3-6.7); Neutrophils Percent Auto 85.1 % (45.5-73.1); Nucleated Red Blood Cells Perc 0.1 % (0.0-0.2); Platelet Count Result 267 k/mm3 (150-375); Red Blood Count 3.44 M/mm3 (4.2-5.4); Red Cell Distribution Width 13.9 % (11.5-14.5); White Blood Count 14.3 K/mm3 (4.5-10.0)
[2021-05-27 17:54] LABS: Alanine Aminotransferase 23 U/L (4-35); Albumin Level 3.6 g/dL (3.5-5.1); Alkaline Phosphatase 106 U/L (38-126); Anion Gap 10 mmol/L (8-16); Aspartate Amino Transferase 47 U/L (14-36); Bilirubin,Total 1.1 mg/dL (0.2-1.3); Blood Urea Nitrogen 55 mg/dL (7-17); Calcium 9.1 mg/dL (8.4-10.2); Carbon Dioxide 22 mmol/L (22-30); Chloride 101 mmol/L (98-107); Estimated CRCL calculation 19 ml/min; Estimated Glomerular Filt Rate 27; Glucose 129 mg/dL (65-110); Potassium 5.1 mmol/L (3.4-5.0); Sodium 133 mmol/L (137-145)
[2021-05-27 18:46] LABS: Add Urine Microscopic? YES; Appearance Urine Clear (Clear); Bilirubin Urine Negative (Negative); Blood Urine Negative (Negative); Color Urine Yellow (Yellow); Glucose Urine UA Negative (Negative); Ketones Urine Trace mg/dL (Negative); Leukocyte Esterase Ur 1+ LEU/UL (Negative); Nitrate Urine Negative (Negative); Protein Urine Negative (Negative); RBC Urine 0-2 /hpf (0-2); Specific Grav Ur 1.015 (1.001-1.035); Squamous Epithelial Cell Urine Rare /hpf (Few); Urobilinogen Urine Negative mg/dL (<2.0); WBC Urine 0-3 /hpf
--- NOTE | 2021-05-27 19:39 | ED.BACK ---
HPI - Back Pain/Injury General Chief Complaint: Back Pain/Injury Stated Complaint: back pain Time Seen by Provider: 05/27/21 16:49 Source: patient Mode of arrival: ambulatory History of Present Illness HPI Narrative: 81 history of double lung transplant here with a complaint of low back pain for past few weeks, she denies any trauma. Patient states that she has seen chiropractor this week had 3 adjustment which did not help with any pain however since this morning she is unable to withstand the pain. She denies any bladder or bowel incontinence. No numbness or tingling in the sacral area or in the legs. She states she is unable to walk secondary to pain MD elicited complaint: back pain Onset (ago): week(s) (1) Timing: constant Severity: severe Similar Symptoms Previously: No Quality: aching Location: sacrum Radiation: right upper leg Exacerbating factors: none Relieving factors: none Associated symptoms: denies other symptoms Related Data Home Medications Medication Instructions Recorded Confirmed acyclovir 200 mg PO BID 03/06/20 05/22/21 apixaban [Eliquis] 2.5 mg PO BID 03/06/20 05/22/21 metoprolol tartrate 25 mg PO DAILY 03/06/20 05/22/21 pantoprazole [Protonix] 40 mg PO DAILY 03/06/20 05/22/21 prednisone 7.5 mg PO DAILY 03/06/20 05/22/21 sulfamethoxazole-trimethoprim 1 tablet PO 3XW 03/06/20 05/22/21 [Bactrim DS] tacrolimus 0.5 mg PO BID 03/06/20 05/22/21 amoxicillin 500 mg PO DAILY 05/22/21 05/22/21 azathioprine 50 mg PO DAILY 05/22/21 05/22/21 cholecalciferol (vitamin D3) 10 mcg PO DAILY 05/22/21 05/22/21 Allergies Allergy/AdvReac Type Severity Reaction Status Date / Time NSAIDS (Non-Steroidal AdvReac Other Verified 05/25/21 11:53 Anti-Inflamma Review of Systems Review of Systems: All systems reviewed & are unremarkable except as noted in HPI and below Constitutional: Constitutional: Reports no additional constitutional complaints Eyes: Eyes: Reports no additional eye complaints ENT: Reports system reviewed and no additional complaints, except as documented Cardiovascular: Cardiovascular: Reports no additional cardiovascular complaints Respiratory: Respiratory: Reports no additional respiratory complaints Gastrointestinal: Gastrointestinal: Reports no additional gastrointestinal complaints Musculoskeletal: Musculoskeletal: Reports as per HPI Neurologic: Reports system reviewed and no additional complaints, except as documented Psychiatric: Psychiatric: Reports no additional psychiatric complaints Endocrine: Endocrine: Reports no additional endocrine complaints PMFSH Past Medical History Medical History Anemia recieves iron infusions weekly Atrial flutter Breast CA Chronic GERD History of blood transfusion HTN (hypertension) Hypercholesterolemia Immunosuppressed status Overweight (BMI 25.0-29.9) Skin cancer Surgical History Surgical History History of lumpectomy left breast Lung transplant status, bilateral Family History Family History Mother Diabetes mellitus Sibling Diabetes mellitus Social History Social History Smoking status: Never smoker Alcohol intake: never Substance use: never Substance use type: does not use Gender identity (if verbalized by the patient): Female Spiritual care concerns: No Exam Narrative: GENERAL: Well-appearing, well-nourished, and in mild distress sec to pain HEAD: Normocephalic, atraumatic. EYES: PERRLA and EOMI.. NECK: Supple. CHEST: Clear to auscultation. No respiratory distress. HEART: Regular rate and rhythm. No murmur heard. Normal peripheral pulses. ABDOMEN: Soft, nontender, nondistended, normal active bowel sounds. Back no vertebral point tenderness , SLR Neg good power and tone of both lower ext. EX
[2021-05-27 21:30] VITALS: BP 139/96; PULSE 112; RESP 18; O2SAT 95
[2021-05-27 21:36] LABS: SARS-CoV-2 RNA PCR Negative
--- NOTE | 2021-05-27 22:30 | ADMGEN ---
This patient, Loren Wells, was admitted to Medical Room 346-01. Patient/family oriented to hospital policies and general routines including ID bracelet, bed and alarms, visiting hours, pain management, procedures, bathroom and other care routines, personal items, smoking policy, room service/diet, and visiting hours. Information on how to activate the Rapid Response Team has been discussed. Patient/Family are encouraged to report perceived risks to care and to ask questions if they do not understand what they are told or what they should do.
[2021-05-27 22:32] VITALS: BP 149/87; PULSE 107; RESP 20; TEMP 36.3; O2SAT 96
[2021-05-27 22:36] VITALS: BMI 24.5
[2021-05-27] MEDS: SODIUM CHLORIDE 0.9% IV 1,000 ML 75 ML IV CONT (22:37)
[2021-05-28] VITALS (9 sets, daily range): BP systolic 148–159; BP diastolic 71–86; PULSE 80–101; RESP 16–20; TEMP 35.8–36.7; O2SAT 92–95
--- NOTE | 2021-05-28 00:11 | PM.IMHP ---
H&P: HPI History of Present Illness Date/Time: 05/28/21 00:11 Chief Complaint: Left hip pain Narrative: This is a 81-year-old female with past medical history significant for lung transplant, patient presents to the emergency room due to increasingly worsening pain with ambulation patient denies any trauma or falls S states that in April when she was trying to go up stairs when she left her leg she felt pain which has gradually gotten worse as well as ambulation which makes it more painful patient has been to see her chiropractor and has been using a walker that belongs to her however a has become now unbearable and unable to even walk with the aid of a walker has not been able to do her ADLs and has been laying in bed most of the time unable to feed herself or prepare meals denies any fevers, any rigors, any chills, any diarrhea, abdominal pain or pain or burning with urination, no cough, no sputum production, no shortness of breath, has not been able to prepare meals for herself or take care of herself.. Preliminary workup was significant for CT of lumbar spine with bilateral acute subacute sacral alae fractures. Patient is been admitted for further evaluation, management and treatment. Review of Systems Review of Systems: Pain with ambulation, unable to care for herself, unable to do her ADLs Constitutional: Constitutional: Denies chills, Denies fatigue, Denies fever(s), Denies frequent falls, Denies malaise, Denies night sweats, Denies poor appetite and Denies weakness Eyes: Eyes: Denies change in vision ENT: Denies dysphagia, Denies vertigo, Denies dizziness, Denies nasal congestion, Denies nasal discharge, Denies nasal obstruction and Denies odynophagia Cardiovascular: Cardiovascular: Denies pedal edema, Denies edema, Denies claudication, Denies leg edema, Denies lightheadedness, Denies radiating jaw, neck or arm pain, Denies palpitations and Denies orthopnea Respiratory: Respiratory: Denies cough and Denies excessive phlegm production Gastrointestinal: Gastrointestinal: Denies abdominal pain, Denies dyspepsia, Denies heartburn, Denies diarrhea, Denies nausea and Denies vomiting Genitourinary: Genitourinary: Denies dysuria and Denies flank pain Musculoskeletal: Musculoskeletal: Reports back pain, Reports arthralgias and Reports limited range of motion Comments: Left hip Integumentary/Breasts: Skin/Breast: Denies rash Neurologic: Denies vertigo, Denies dizziness, Denies focal weakness and Denies Sensory deficit (Neuro) Psychiatric: Psychiatric: Reports no additional psychiatric complaints and Reports as per HPI Endocrine: Endocrine: Denies cold intolerance, Denies heat intolerance, Denies polyphagia, Denies polydipsia, Denies polyuria and Denies palpitations Hematologic/Lymphatic: Hematologic/Lymphatic: Reports no additional hematologic/lymphatic complaints and Reports as per HPI Allergic/Immunologic: Allergic/Immunologic: Reports no additional allergic/immunologic complaints and Reports as per HPI PMFSH Past Medical History Medical History Anemia recieves iron infusions weekly Atrial flutter Breast CA Chronic GERD History of blood transfusion HTN (hypertension) Hypercholesterolemia Immunosuppressed status Overweight (BMI 25.0-29.9) Skin cancer Surgical History Surgical History History of lumpectomy left breast Lung transplant status, bilateral Family History Family History Mother Diabetes mellitus Sibling Diabetes mellitus Social History Social History Smoking status: Never smoker Second hand tobacco smoke exposure: No Alcohol intake: never Substance use: never Substance use type: does not use Gender identity (if verbalized by the patient): Female Spiritual care concerns: No
--- NOTE | 2021-05-28 08:00 | PM.IMPN ---
Progress Note: A&P Assessment and Plan (1) Gait disturbance: Code(s): R26.9 - Unspecified abnormalities of gait and mobility Status: Acute Assessment and Plan: Secondary to pain Patient with subacute/acute sacral fracture Conservative management Pain management PT OT consult Pedersen catheter in Will need residential placement Patient unable to do her ADLs (2) Closed sacral fracture: Qualifiers: Encounter type: initial encounter Fracture alignment: nondisplaced Zone of sacrum fracture: zone I of sacrum Qualified Code(s): S32.110A - Nondisplaced Zone I fracture of sacrum, initial encounter for closed fracture Code(s): S32.10XA - Unspecified fracture of sacrum, initial encounter for closed fracture Status: Acute Assessment and Plan: Conservative management Pain medications PT/OT (3) Chronic GERD: Code(s): K21.9 - Gastro-esophageal reflux disease without esophagitis Status: Acute Assessment and Plan: Continue pantoprazole (4) Atrial flutter: Code(s): I48.92 - Unspecified atrial flutter Status: Acute Assessment and Plan: Rate control and anticoagulated Continue metoprolol (5) Immunosuppressed status: Code(s): D84.9 - Immunodeficiency, unspecified Status: Acute Assessment and Plan: Continue tacrolimus (6) Lung transplant status, bilateral: Code(s): Z94.2 - Lung transplant status Status: Acute Assessment and Plan: Unchanged Continue prednisone, continue tacrolimus. Additional Plan agree with plan of care aboved Time Spent With Patient Time with patient: Greater than 35 minutes Subjective Date/time seen: 05/28/21 0800 Interval history: Date/Time: 05/28/21 00:11 Narrative: This is a 81-year-old female with past medical history significant for lung transplant, patient presents to the emergency room due to increasingly worsening pain with ambulation patient denies any trauma or falls S states that in April when she was trying to go up stairs when she left her leg she felt pain which has gradually gotten worse as well as ambulation which makes it more painful patient has been to see her chiropractor and has been using a walker that belongs to her however a has become now unbearable and unable to even walk with the aid of a walker has not been able to do her ADLs and has been laying in bed most of the time unable to feed herself or prepare meals denies any fevers, any rigors, any chills, any diarrhea, abdominal pain or pain or burning with urination, no cough, no sputum production, no shortness of breath, has not been able to prepare meals for herself or take care of herself.. Preliminary workup was significant for CT of lumbar spine with bilateral acute subacute sacral alae fractures. Patient is been admitted for further evaluation, management and treatment. Date/Time 05/30/21 0800 Patient is doing ok today. She stated that she does well as long as she is laying flat. Was able to move the patient around and she was able to eat and was able to slightly set up. Explained to patient that due to her sacral fractures that PT OT would be her best bet. Patient does still have pain in her lower back and between her butt cheeks. Her pain is 10/10. She denies any other complaints at this. Review of Systems Review of Systems: All systems reviewed & are unremarkable except as noted in HPI and below Exam Const: General: cooperative, comfortable, no acute distress, well developed, alert, awake and ill appearing chronically Nutritional Appearance: average body habitus Orientation/consciousness: patient oriented x3 HENMT: Head: normal to inspection, normocephalic and atraumatic Ears: hearing grossly normal bilaterally General nose exam: Normal external nose present Face and sinus: normal facial exam Mouth: Yes dry mucous membranes Eyes: General: appearance normal, both eyes and all related struct
[2021-05-28] MEDS: ACYCLOVIR 200 MG CAPSULE PO ×2 (08:30→18:15)
[2021-05-28] MEDS: CHOLECALCIFEROL 400 UNITS TABLET (VIT D) PO (08:31)
[2021-05-28] MEDS: PANTOPRAZOLE 40 MG TABLET PO (08:31)
[2021-05-28] MEDS: APIXABAN 2.5 MG TABLET PO ×2 (08:31→18:15)
[2021-05-28] MEDS: predniSONE 20 MG TABLET PO ×2 (08:31→18:15)
[2021-05-28] MEDS: METOPROLOL TARTRATE 12.5 MG TABLET PO ×2 (08:33→20:33)
[2021-05-28] MEDS: HYDROmorphone HCL INJ (*CRX) 1 MG/ML SYR 0.5 MG IV PUSH (08:38)
--- NOTE | 2021-05-28 11:34 | PHAR ---
PT'S HOME MED TACROLIMUS 0.5 MG CAPSULES VERIFIED BY PHARMACY
[2021-05-28] MEDS: HYDROcodone/acetaminophen (*CRX) 5-325 MG TABLET 1 TAB PO ×2 (11:48→18:18)
[2021-05-28] MEDS: SODIUM CHLORIDE 0.9% IV 1,000 ML 75 ML IV CONT (11:51)
[2021-05-28 16:56] LABS: Glucose Point of Care 177 mg/dl (65-105)
[2021-05-29] VITALS (17 sets, daily range): BP systolic 149–181; BP diastolic 80–90; PULSE 77–89; RESP 18–20; TEMP 36.1–36.9; O2SAT 77–100
[2021-05-29 05:42] LABS: Basophils Percent Auto 0.2 % (0.2-1.2); Hemoglobin 9.4 g/dL (12.0-15.0); Immature Granulocyte Absolute 0.06 K/mm3 (0.00-0.031); Lymphocytes Absolute Auto 0.22 K/mm3 (0.9-3.2); Lymphocytes Percent Auto 3.6 % (18.3-44.2); Mean Corpuscular HGB Conc 32.4 g/dl (32-36); Mean Corpuscular Hemoglobin 30.4 pg (26-34); Mean Corpuscular Volume 93.9 fl (80-100); Mean Platelet Volume 9.6 fl (7.4-10.4); Monocytes Absolute Auto 0.4 K/mm3 (0.1-0.6); Monocytes Percent Auto 5.8 % (2.6-8.5); Neutrophils Absolute Auto 5.5 K/mm3 (1.3-6.7); Neutrophils Percent Auto 89.4 % (45.5-73.1); Platelet Count Result 230 k/mm3 (150-375); Red Blood Count 3.09 M/mm3 (4.2-5.4); Red Cell Distribution Width 13.6 % (11.5-14.5); White Blood Count 6.2 K/mm3 (4.5-10.0)
[2021-05-29 05:53] LABS: Alanine Aminotransferase 20 U/L (4-35); Alkaline Phosphatase 100 U/L (38-126); Anion Gap 6 mmol/L (8-16); Aspartate Amino Transferase 35 U/L (14-36); Bilirubin,Total 0.9 mg/dL (0.2-1.3); Blood Urea Nitrogen 55 mg/dL (7-17); Calcium 8.5 mg/dL (8.4-10.2); Carbon Dioxide 26 mmol/L (22-30); Chloride 102 mmol/L (98-107); Estimated CRCL calculation 23 ml/min; Estimated Glomerular Filt Rate 33; Glucose 167 mg/dL (65-110); Magnesium 2.5 mg/dL (1.6-2.3); Potassium 5.5 mmol/L (3.4-5.0); Sodium 134 mmol/L (137-145)
[2021-05-29] MEDS: predniSONE 20 MG TABLET PO ×2 (09:06→17:09)
[2021-05-29] MEDS: SODIUM POLYSTYRENE SULFONONATE 15 GM/60 ML BTL PO (09:06)
[2021-05-29] MEDS: CHOLECALCIFEROL 400 UNITS TABLET (VIT D) PO (09:06)
[2021-05-29] MEDS: PANTOPRAZOLE 40 MG TABLET PO (09:06)
[2021-05-29] MEDS: ACYCLOVIR 200 MG CAPSULE PO ×2 (09:06→17:09)
[2021-05-29] MEDS: APIXABAN 2.5 MG TABLET PO ×2 (09:06→17:09)
[2021-05-29] MEDS: METOPROLOL TARTRATE 12.5 MG TABLET PO ×2 (09:07→21:18)
[2021-05-29] MEDS: HYDROcodone/acetaminophen (*CRX) 5-325 MG TABLET 1 TAB PO ×2 (09:15→17:11)
[2021-05-29] MEDS: CYCLOBENZAPRINE HCL 10 MG TABLET PO ×3 (09:15→17:11)
--- NOTE | 2021-05-29 10:12 | PM.IMPN ---
Progress Note: A&P Assessment and Plan (1) Gait disturbance: Code(s): R26.9 - Unspecified abnormalities of gait and mobility Status: Acute Assessment and Plan: Secondary to pain Patient with subacute/acute sacral fracture Conservative management Pain management PT OT consult Pedersen catheter in Will need long term placement Patient unable to do her ADLs (2) Closed sacral fracture: Qualifiers: Encounter type: initial encounter Fracture alignment: nondisplaced Zone of sacrum fracture: zone I of sacrum Qualified Code(s): S32.110A - Nondisplaced Zone I fracture of sacrum, initial encounter for closed fracture Code(s): S32.10XA - Unspecified fracture of sacrum, initial encounter for closed fracture Status: Acute Assessment and Plan: Conservative management Pain medications PT/OT (3) Chronic GERD: Code(s): K21.9 - Gastro-esophageal reflux disease without esophagitis Status: Acute Assessment and Plan: Continue pantoprazole (4) Atrial flutter: Code(s): I48.92 - Unspecified atrial flutter Status: Acute Assessment and Plan: Rate control and anticoagulated Continue metoprolol (5) Immunosuppressed status: Code(s): D84.9 - Immunodeficiency, unspecified Status: Acute Assessment and Plan: Continue tacrolimus (6) Lung transplant status, bilateral: Code(s): Z94.2 - Lung transplant status Status: Acute Assessment and Plan: Unchanged Continue prednisone, continue tacrolimus. (7) Hyperkalemia: Code(s): E87.5 - Hyperkalemia Status: Acute Assessment and Plan: K+ 5.5 Mg+ slightly elevated at 2.5 Kayexalate given Repeat labs in a.m. (8) HTN (hypertension): Code(s): I10 - Essential (primary) hypertension Status: Acute Assessment and Plan: BP elevated Continue home meds Monitor Additional Plan Code status: FULL Disposition: Home with [facility] when medically stable Subjective Date/time seen: 05/29/21 10:12 Interval history: Date/Time: 05/28/21 00:11 Narrative: This is a 81-year-old female with past medical history significant for lung transplant, patient presents to the emergency room due to increasingly worsening pain with ambulation patient denies any trauma or falls S states that in April when she was trying to go up stairs when she left her leg she felt pain which has gradually gotten worse as well as ambulation which makes it more painful patient has been to see her chiropractor and has been using a walker that belongs to her however a has become now unbearable and unable to even walk with the aid of a walker has not been able to do her ADLs and has been laying in bed most of the time unable to feed herself or prepare meals denies any fevers, any rigors, any chills, any diarrhea, abdominal pain or pain or burning with urination, no cough, no sputum production, no shortness of breath, has not been able to prepare meals for herself or take care of herself.. Preliminary workup was significant for CT of lumbar spine with bilateral acute subacute sacral alae fractures. Patient is been admitted for further evaluation, management and treatment. Date/Time 05/28/21 0800 Patient is doing ok today. She stated that she does well as long as she is laying flat. Was able to move the patient around and she was able to eat and was able to slightly set up. Explained to patient that due to her sacral fractures that PT OT would be her best bet. Patient does still have pain in her lower back and between her butt cheeks. Her pain is 10/10. She denies any other complaints at this. 05/29/2021: Pt seen and evaluated; labs, vs, diagnostic results reviewed; pt continues with pain 8-10/10 with when she moves; she is 3L of O2 and does not wear O2 at home ; BP elevated Review of Systems Review of Systems: All systems reviewed & are unremarkable except as noted in HPI and below
[2021-05-29] MEDS: HYDROmorphone HCL INJ (*CRX) 1 MG/ML SYR 0.5 MG IV PUSH (13:13)
--- NOTE | 2021-05-29 14:53 | HOMEO2EVAL ---
Evaluation was performed at [facility] Home Oxygen Evaluation RC: Home Oxygen (O2) Evaluation Start: 05/29/21 14:10 Freq: ONCE Status: Active Protocol: RPE Activity Type Activity Date Activity User E-Sign Co-Sign Detail Recorded Client Recorded Date Recorded By Document 05/29/21 14:00 LEOBARDO [email or web address] 05/29/21 14:53 LEOBARDO Document 05/29/21 14:05 LEOBARDO [email or web address] 05/29/21 14:53 LEOBARDO Document 05/29/21 14:10 LEOBARDO [email or web address] 05/29/21 14:53 LEOBARDO Document 05/29/21 14:15 LEOBARDO [email or web address] 05/29/21 14:53 LEOBARDO Document 05/29/21 14:20 LEOBARDO [email or web address] 05/29/21 14:53 LEOBARDO Document 05/29/21 14:30 LEOBARDO [email or web address] 05/29/21 14:53 LEOBARDO 05/29/21 05/29/21 05/29/21 14:00 14:05 14:10 Home O2 Evaluation Test Phase Resting Resting Resting Oxygen Delivery Room Air Nasal Cannula Nasal Cannula Oxygen Flow Rate (L/min) 1 2 Pulse Oximetry (90-100 %) 86 L 87 L 88 L Pulse Rate (60-100 beats/min) 85 85 84 Activity Tolerance Treatment Charges O2 Evaluation - Inpatient 05/29/21 05/29/21 05/29/21 14:15 14:20 14:30 Home O2 Evaluation Test Phase Resting Exercise Resting Oxygen Delivery Nasal Cannula Nasal Cannula Nasal Cannula Oxygen Flow Rate (L/min) 3 3 3 Pulse Oximetry (90-100 %) 91 91 91 Pulse Rate (60-100 beats/min) 84 85 Activity Tolerance Poor Treatment Charges
--- NOTE | 2021-05-29 15:07 | PCRCNOTE ---
HOME O2 EVAL COMPLETE. 3 LITERS AT REST AND WITH ACTIVITY. SET WITH IV AND RESP CARE. PHONE NUMBER . TANK TO BE DELIVERED TOMORROW Tuesday05/30/21.
[2021-05-30] VITALS (7 sets, daily range): BP systolic 146–172; BP diastolic 78–83; PULSE 78–88; RESP 19–20; TEMP 36.6–37.4; O2SAT 93–96
[2021-05-30] MEDS: HYDROcodone/acetaminophen (*CRX) 5-325 MG TABLET 1 TAB PO ×3 (02:40→17:05)
[2021-05-30] MEDS: HYDROmorphone HCL INJ (*CRX) 1 MG/ML SYR 0.5 MG IV PUSH (05:19)
[2021-05-30 06:45] LABS: Hematocrit 30.8 % (37.0-47.0); Hemoglobin 10.1 g/dL (12.0-15.0); Mean Corpuscular HGB Conc 32.8 g/dl (32-36); Mean Corpuscular Hemoglobin 30.4 pg (26-34); Mean Corpuscular Volume 92.8 fl (80-100); Mean Platelet Volume 9.6 fl (7.4-10.4); Platelet Count Result 269 k/mm3 (150-375); Red Blood Count 3.32 M/mm3 (4.2-5.4); Red Cell Distribution Width 13.8 % (11.5-14.5); White Blood Count 9.5 K/mm3 (4.5-10.0)
[2021-05-30 06:58] LABS: Potassium 4.5 mmol/L (3.4-5.0)
[2021-05-30 07:59] LABS: Anion Gap 7 mmol/L (8-16); Blood Urea Nitrogen 48 mg/dL (7-17); Calcium 8.6 mg/dL (8.4-10.2); Carbon Dioxide 26 mmol/L (22-30); Chloride 103 mmol/L (98-107); Estimated CRCL calculation 24 ml/min; Estimated Glomerular Filt Rate 36; Glucose 196 mg/dL (65-110); Magnesium 2.4 mg/dL (1.6-2.3); Sodium 136 mmol/L (137-145)
[2021-05-30] MEDS: CYCLOBENZAPRINE HCL 10 MG TABLET PO ×3 (08:31→17:05)
[2021-05-30] MEDS: PANTOPRAZOLE 40 MG TABLET PO (08:32)
[2021-05-30] MEDS: METOPROLOL TARTRATE 12.5 MG TABLET PO ×2 (08:32→20:52)
[2021-05-30] MEDS: APIXABAN 2.5 MG TABLET PO ×2 (08:32→17:06)
[2021-05-30] MEDS: predniSONE 20 MG TABLET PO ×2 (08:32→17:06)
[2021-05-30] MEDS: CHOLECALCIFEROL 400 UNITS TABLET (VIT D) PO (08:32)
[2021-05-30] MEDS: ACYCLOVIR 200 MG CAPSULE PO ×2 (08:33→17:06)
--- NOTE | 2021-05-30 09:23 | PM.IMPN ---
Progress Note: A&P Assessment and Plan (1) Gait disturbance: Code(s): R26.9 - Unspecified abnormalities of gait and mobility Status: Acute Assessment and Plan: Secondary to pain Patient with subacute/acute sacral fracture Conservative management Pain management PT OT consult Pedersen catheter in [facility] Patient unable to do her ADLs (2) Closed sacral fracture: Qualifiers: Encounter type: initial encounter Fracture alignment: nondisplaced Zone of sacrum fracture: zone I of sacrum Qualified Code(s): S32.110A - Nondisplaced Zone I fracture of sacrum, initial encounter for closed fracture Code(s): S32.10XA - Unspecified fracture of sacrum, initial encounter for closed fracture Status: Acute Assessment and Plan: Conservative management Pain medications PT/OT (3) Chronic GERD: Code(s): K21.9 - Gastro-esophageal reflux disease without esophagitis Status: Acute Assessment and Plan: Continue pantoprazole (4) Atrial flutter: Code(s): I48.92 - Unspecified atrial flutter Status: Acute Assessment and Plan: Rate control and anticoagulated Continue metoprolol (5) Immunosuppressed status: Code(s): D84.9 - Immunodeficiency, unspecified Status: Acute Assessment and Plan: Continue tacrolimus (6) Lung transplant status, bilateral: Code(s): Z94.2 - Lung transplant status Status: Acute Assessment and Plan: Continue prednisone, continue tacrolimus. (7) Hyperkalemia: Code(s): E87.5 - Hyperkalemia Status: Acute Assessment and Plan: Resolved K+ 5.5-->4.5 Mg+ slightly elevated at 2.5-->2.4 Kayexalate given Repeat labs in a.m. (8) HTN (hypertension): Code(s): I10 - Essential (primary) hypertension Status: Acute Assessment and Plan: BP improving Continue home meds Monitor (9) SOB (shortness of breath): Code(s): R06.02 - Shortness of breath Status: Acute Assessment and Plan: On admission CXR-->Possible left upper lobe pneumonia; cardiomegaly, small pleural effusions and possible mild pulmonary edema No fever, leukocytosis Lactic, procalcitonin wnl Will check CT of chest Call to Dr. Navarro, transplant MD at [facility] ([facility]) Additional Plan Code status: FULL Disposition: Home with [facility] when medically stable Subjective Date/time seen: 05/30/21 09:23 Interval history: Date/Time: 05/28/21 00:11 Narrative: This is a 81-year-old female with past medical history significant for lung transplant, patient presents to the emergency room due to increasingly worsening pain with ambulation patient denies any trauma or falls S states that in April when she was trying to go up stairs when she left her leg she felt pain which has gradually gotten worse as well as ambulation which makes it more painful patient has been to see her chiropractor and has been using a walker that belongs to her however a has become now unbearable and unable to even walk with the aid of a walker has not been able to do her ADLs and has been laying in bed most of the time unable to feed herself or prepare meals denies any fevers, any rigors, any chills, any diarrhea, abdominal pain or pain or burning with urination, no cough, no sputum production, no shortness of breath, has not been able to prepare meals for herself or take care of herself.. Preliminary workup was significant for CT of lumbar spine with bilateral acute subacute sacral alae fractures. Patient is been admitted for further evaluation, management and treatment. Date/Time 05/28/21 0800 Patient is doing ok today. She stated that she does well as long as she is laying flat. Was able to move the patient around and she was able to eat and was able to slightly set up. Explained to patient that due to her sacral fractures that PT OT would be her best bet. Patient does still have pain in her lower back and between her butt samara
[2021-05-30 09:59] LABS: Lactic Acid Reflex 1.8 mmol/L (0.7-2.1)
[2021-05-30 11:10] LABS: Procalcitonin 0.2 ng/mL
[2021-05-30 13:23] LABS: NT Pro B Type Natriuretic Pept 3140 pg/mL (5-100)
[2021-05-30] MEDS: SODIUM CHLORIDE 0.9% IV 1,000 ML 50 ML IV CONT (13:39)
[2021-05-31] VITALS (9 sets, daily range): BP systolic 150–166; BP diastolic 83–89; PULSE 83–95; RESP 18–20; TEMP 36.2–36.8; O2SAT 91–97
[2021-05-31 07:06] LABS: Hematocrit 33.2 % (37.0-47.0); Hemoglobin 10.6 g/dL (12.0-15.0); Mean Corpuscular HGB Conc 31.9 g/dl (32-36); Mean Corpuscular Hemoglobin 30.5 pg (26-34); Mean Corpuscular Volume 95.7 fl (80-100); Mean Platelet Volume 9.5 fl (7.4-10.4); Platelet Count Result 233 k/mm3 (150-375); Red Blood Count 3.47 M/mm3 (4.2-5.4); Red Cell Distribution Width 14.1 % (11.5-14.5); White Blood Count 9.1 K/mm3 (4.5-10.0)
[2021-05-31 07:22] LABS: Anion Gap 6 mmol/L (8-16); Blood Urea Nitrogen 39 mg/dL (7-17); Calcium 8.7 mg/dL (8.4-10.2); Carbon Dioxide 26 mmol/L (22-30); Chloride 104 mmol/L (98-107); Estimated CRCL calculation 26 ml/min; Estimated Glomerular Filt Rate 40; Glucose 153 mg/dL (65-110); Potassium 4.5 mmol/L (3.4-5.0); Sodium 136 mmol/L (137-145)
[2021-05-31 09:23] LABS: Erythrocyte Sedimentation Rate 54 mm/hr (0-20)
[2021-05-31 09:38] LABS: CRP 1.7 mg/dL (<1.0)
--- NOTE | 2021-05-31 09:59 | PM.IMPN ---
Progress Note: A&P Assessment and Plan (1) Gait disturbance: Code(s): R26.9 - Unspecified abnormalities of gait and mobility Status: Acute Assessment and Plan: Secondary to pain Patient with acute sacral fracture Pain management PT OT consult Pedersen catheter disconinued now - patient is lung tx history - at risk for infection. Voiding trial today. plan to discharge to home with and Home health nursing and PT and OT. Patient unable to do her ADLs - at this time. Consulted Orthopedic Surgeon for discharge instructions and outpatient follow up. (2) Closed sacral fracture: Qualifiers: Encounter type: initial encounter Fracture alignment: nondisplaced Zone of sacrum fracture: zone I of sacrum Qualified Code(s): S32.110A - Nondisplaced Zone I fracture of sacrum, initial encounter for closed fracture Code(s): S32.10XA - Unspecified fracture of sacrum, initial encounter for closed fracture Status: Acute Assessment and Plan: Changed her pain medications today, stopped the IV Dilaudid, increased her Okarche dose for the Emerson pain levels, added scheduled Tylenol dosing as well as scheduled lidocaine patches. We cannot use Motrin or tramadol as she would like to avoid that with her lung transplant history. ordered p.r.n. ice or heating pad to her lower back as needed. Consulted orthopedic surgeon to evaluate for need for back brace or any further interventions, as well as to follow up with patient after discharge. Appreciate their recommendations. patient to get up to chair for meals. PT/OT will need to continue following up with her primary care provider (3) Chronic GERD: Code(s): K21.9 - Gastro-esophageal reflux disease without esophagitis Status: Acute Assessment and Plan: Continue pantoprazole chronic no concerns at this time (4) Atrial flutter: Code(s): I48.92 - Unspecified atrial flutter Status: Acute Assessment and Plan: CONTROLLED Rate control and anticoagulated Continue metoprolol HR 80s, no ectopy chronic no concerns at this time (5) Immunosuppressed status: Code(s): D84.9 - Immunodeficiency, unspecified Status: Acute Assessment and Plan: Her tacrolimus 0.5 mg b.i.d. dosing continues as well as her prednisone 20 mg b.i.d. dosing. (6) Lung transplant status, bilateral: Code(s): Z94.2 - Lung transplant status Status: Acute Assessment and Plan: Continue prednisone, continue tacrolimus. consulted Pulmonary as the patient states she is on no oxygen at home and has not been using any inhalers or nebulizer treatments at home. Today the patient is on 5 L of oxygen and short of breath, and has new hoarseness as well. Humidity was recently added to her nasal cannula oxygen today. Will also check her ESR and CRP as the patient is very concerned for lung transplant rejection. She states that her last lung transplant appointment at [facility] was around April 14, 2021 and her next appointment is June 15, 2021. Her tacrolimus 0.5 mg b.i.d. dosing continues as well as her prednisone 20 mg b.i.d. dosing. (7) Hyperkalemia: Code(s): E87.5 - Hyperkalemia Status: Acute Assessment and Plan: Resolved K+ 5.5-->4.5 today in yesterday Mg+ slightly elevated at 2.5-->2.4 yest Kayexalate given BM this morning reported from patient Repeat labs in a.m. (8) HTN (hypertension): Code(s): I10 - Essential (primary) hypertension Status: Acute Assessment and Plan: Resolved. BP improving Continue home meds chronic and no acute concerns at this time (9) SOB (shortness of breath): Code(s): R06.02 - Shortness of breath Status: Acute Assessment and Plan: On admission CXR-->Possible left upper lobe pneumonia; cardiomegaly, small pleural effusions and possible mild pulmonary edema No fever, leukocytosis Lactic, procalcitonin wnl history of lung TX 5 years ag
[2021-05-31] MEDS: CHOLECALCIFEROL 400 UNITS TABLET (VIT D) PO (10:21)
[2021-05-31] MEDS: CYCLOBENZAPRINE HCL 10 MG TABLET PO ×2 (10:21→18:01)
[2021-05-31] MEDS: APIXABAN 2.5 MG TABLET PO ×2 (10:21→18:02)
[2021-05-31] MEDS: METOPROLOL TARTRATE 12.5 MG TABLET PO ×2 (10:21→21:25)
[2021-05-31] MEDS: HYDROcodone/acetaminophen (*CRX) 10-325 MG TABLET 1 TAB PO ×2 (10:21→18:00)
[2021-05-31] MEDS: PANTOPRAZOLE 40 MG TABLET PO (10:21)
[2021-05-31] MEDS: ACYCLOVIR 200 MG CAPSULE PO ×2 (10:21→18:02)
[2021-05-31] MEDS: predniSONE 20 MG TABLET PO ×2 (10:21→18:01)
[2021-05-31] MEDS: LIDOCAINE 5% PATCH 3 PATCH TRANSDERM (10:28)
[2021-05-31] MEDS: ACETAMINOPHEN 500 MG TABLET 1000 MG PO (12:36)
[2021-05-31 13:01] LABS: NT Pro B Type Natriuretic Pept 2570 pg/mL (5-100)
[2021-05-31] MEDS: ALBUTEROL SULFATE NEB 2.5 MG/0.5 ML INH INHALATION ×2 (13:53→21:08)
[2021-05-31] MEDS: IPRATROPIUM BR 0.02% INH SOLN 0.5 MG/2.5 ML VIAL INHALATION ×2 (13:53→21:08)
--- NOTE | 2021-05-31 16:25 | PM.CNPUL ---
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 She has CT chest showing patchy bilateral infiltrates 05/30 over entire lungs Could be rejection vs infection BNP was elevated , now on fluid restriction; echo has been ordered I am contacting transplant team at [facility] for guidance regarding this complex patient. Discussed with Arleen Estrella NP. History of Present Illness History of Present Illness Consult date: 05/31/21 Reason for consult: hypoxemia Chief complaint: itractable low back pain Narrative: NEW: Loren Wells is a 81-year-old female with a double lung transplant 5 years ago for pulmonary fibrosis, admitted for increased pain with ambulation. She was in the ED May 22, and , all for low back pain that was worsening. The pain started about Chest CT yesterday showed diffuse lung disease, consistent with pulmonary edema and/or pneumonia; Cardiomegaly; Interval development of bilateral sacral insufficiency fractures with possible unstable fracture at S1-S2. She was admitted without requiring O2, now is on 5 L/minute. She does not have a fever, increased WBC, cough, sputum, chest pain or wheezing. Her complaints include shortness of breath, hoarse voice and increased O2 need now on 5 L/min with saturation 91-94%, increased from 3 L/min on admission 05/27. She is taking her immunosuppressants from home. On admission, BUN and creat were elevated 55 and 1.8, lower at 9/. BNP is elevated 3140 yesterday and 2570 today. Her fluid balance is becoming negative, 4 L out yesterday and 2100 mL out so far today. Mar 2020 colon cancer resected. Review of Systems Review of Systems: All systems reviewed & are unremarkable except as noted in HPI and below (HPI) [facility] Past Medical History Medical History (Updated 05/31/21 @ 17:13 by Shavonne Bowman MD) Anemia recieves iron infusions weekly Atrial flutter Breast CA Chronic GERD History of blood transfusion History of colon cancer HTN (hypertension) Hypercholesterolemia Immunosuppressed status Overweight (BMI 25.0-29.9) Skin cancer Surgical History Surgical History History of lumpectomy left breast Lung transplant status, bilateral Family History Family History Mother Diabetes mellitus Sibling Diabetes mellitus Social History Social History Smoking status: Never smoker Second hand tobacco smoke exposure: No Alcohol intake: never Substance use: never Substance use type: does not use Gender identity (if verbalized by the patient): Female Spiritual care concerns: No Meds Home Medications and Allergies Home Medications Medication Instructions Recorded Confirmed Type acyclovir 200 mg PO BID 03/06/20 05/27/21 History apixaban [Eliquis] 2.5 mg PO BID 03/06/20 05/27/21 History metoprolol tartrate 12.5 mg PO BID 03/06/20 05/27/21 History pantoprazole [Protonix] 40 mg PO DAILY 03/06/20 05/27/21 History prednisone 20 mg PO BID 03/06/20 05/27/21 History sulfamethoxazole-trimethoprim 1 tablet PO 3XW 03/06/20 05/27/21 History [Bactrim DS] tacrolimus 0.5 mg PO BID 03/06/20 05/27/21 History amoxicillin 500 mg PO DAILY 05/22/21 05/27/21 History cholecalciferol (vitamin D3) 10 mcg PO DAILY 05/22/21 05/27/21 History cyclobenzaprine 10 mg PO TID PRN #20 tablet 05/22/21 05/27/21 Rx hydrocodone-a
[2021-05-31 18:49] LABS: EDCOVIDSCREEN Negative (Negative)
[2021-05-31 19:56] LABS: Influenza Control Positive
[2021-06-01] VITALS (10 sets, daily range): BP systolic 143–159; BP diastolic 72–90; PULSE 73–100; RESP 18–22; TEMP 36.2; O2SAT 97
--- NOTE | 2021-06-01 | ECHO_ITS ---
Patient Info Name: Loren Wells Age: 81 years : 1940 Gender: Female Ht: 63 in Wt: 138 lbs BSA: 1.68 m2 HR: 88 bpm BP: 159 / 90 mmHg Heart Rhythm: Sinus Rhythm Technical Quality: Good Exam Date: 06/01/2021 11:03 AM Exam Location: [facility] Patient Status: Inpatient Admit Date: 05/29/2021 Staff Ordering Physician: Arleen Estrella NP Business Continuity Analyst: Martita Rodriguez RDCS Attending Provider: Arleen Estrella NP Exam Type: CA echo doppler color flow Study Info Indications - INCREASING OXYGEN REQUIREMENT Complete two-dimensional, color flow and Doppler transthoracic echocardiogram is performed. Summary 1. Complete two-dimensional, color flow and Doppler transthoracic echocardiogram is performed. 2. Left ventricular chamber dimension is normal. 3. Left ventricular systolic function is normal, estimated at 65-70%. 4. Right ventricular chamber dimension is normal. 5. Left atrial chamber dimension is moderately enlarged. 6. Trivial jet of aortic regurgitation otherwise no significant valvular disease. Left Ventricle Left ventricular chamber dimension is normal. Left ventricular systolic function is normal, estimated at 65-70%. There is mild concentric increased left ventricular wall thickness. The left ventricular diastolic function is grade I diastolic dysfunction. Right Ventricle Right ventricular chamber dimension is normal. Left Atria Left atrial chamber dimension is moderately enlarged. Right Atria Right atrial chamber dimension is normal. Aortic Valve The aortic valve is normal. There is trace aortic valve regurgitation. Pulmonic Valve The pulmonic valve is normal. Mitral Valve The mitral valve has normal leaflets. The mitral valve annulus is mildly calcified. Tricuspid Valve The tricuspid valve leaflets are normal. Pericardium/Pleural The pericardium appears normal. Aorta The aortic root size at the sinus of Valsalva is normal. Left Ventricular Outflow Tract Name Value Normal LVOT 2D LVOT Diameter 1.9 cm LVOT Doppler LVOT Peak Gradient 5 mmHg LVOT Mean Gradient 2 mmHg LVOT VTI 21 cm LVOT VTI/AV VTI Ratio 0.9 LVOT Stroke Volume 61 ml LVOT CO 4.7 l/min LVOT CI 2.8 l/min/m2 Pulmonic Valve Name Value Normal RVOT Doppler RVOT Peak Gradient 3 mmHg PV Doppler PV Peak Gradient 4 mmHg Mitral Valve Name Value Normal
[2021-06-01] MEDS: IPRATROPIUM BR 0.02% INH SOLN 0.5 MG/2.5 ML VIAL INHALATION ×3 (02:22→14:20)
[2021-06-01] MEDS: ALBUTEROL SULFATE NEB 2.5 MG/0.5 ML INH INHALATION ×3 (02:22→14:20)
[2021-06-01] MEDS: HYDROcodone/acetaminophen (*CRX) 10-325 MG TABLET 1 TAB PO ×3 (04:18→20:27)
[2021-06-01 06:51] LABS: Basophils Percent Auto 0.1 % (0.2-1.2); Hematocrit 30.7 % (37.0-47.0); Hemoglobin 9.8 g/dL (12.0-15.0); Immature Granulocyte Absolute 0.12 K/mm3 (0.00-0.031); Immature Granulocyte Percent A 1.6 % (0-0.5); Lymphocytes Absolute Auto 0.24 K/mm3 (0.9-3.2); Lymphocytes Percent Auto 3.1 % (18.3-44.2); Mean Corpuscular HGB Conc 31.9 g/dl (32-36); Mean Corpuscular Hemoglobin 30.6 pg (26-34); Mean Corpuscular Volume 95.9 fl (80-100); Mean Platelet Volume 9.6 fl (7.4-10.4); Monocytes Absolute Auto 0.5 K/mm3 (0.1-0.6); Monocytes Percent Auto 6.7 % (2.6-8.5); Neutrophils Absolute Auto 6.8 K/mm3 (1.3-6.7); Neutrophils Percent Auto 88.5 % (45.5-73.1); Platelet Count Result 203 k/mm3 (150-375); Red Cell Distribution Width 13.7 % (11.5-14.5); White Blood Count 7.7 K/mm3 (4.5-10.0)
[2021-06-01 07:13] LABS: Alanine Aminotransferase 25 U/L (4-35); Alkaline Phosphatase 106 U/L (38-126); Anion Gap 8 mmol/L (8-16); Aspartate Amino Transferase 36 U/L (14-36); Bilirubin,Total 0.8 mg/dL (0.2-1.3); Blood Urea Nitrogen 44 mg/dL (7-17); Calcium 8.4 mg/dL (8.4-10.2); Carbon Dioxide 25 mmol/L (22-30); Chloride 99 mmol/L (98-107); Estimated CRCL calculation 26 ml/min; Estimated Glomerular Filt Rate 40; Glucose 206 mg/dL (65-110); Potassium 5.3 mmol/L (3.4-5.0); Sodium 132 mmol/L (137-145)
[2021-06-01] MEDS: predniSONE 20 MG TABLET PO ×2 (09:48→17:32)
[2021-06-01] MEDS: APIXABAN 2.5 MG TABLET PO ×2 (09:48→17:32)
[2021-06-01] MEDS: CHOLECALCIFEROL 400 UNITS TABLET (VIT D) PO (09:48)
[2021-06-01] MEDS: METOPROLOL TARTRATE 12.5 MG TABLET PO ×2 (09:48→20:25)
[2021-06-01] MEDS: ACYCLOVIR 200 MG CAPSULE PO ×2 (09:48→17:33)
[2021-06-01] MEDS: PANTOPRAZOLE 40 MG TABLET PO (09:48)
[2021-06-01] MEDS: LIDOCAINE 5% PATCH 3 PATCH TRANSDERM (09:49)
[2021-06-01] MEDS: ACETAMINOPHEN 500 MG TABLET 1000 MG PO ×3 (09:51→17:34)
--- NOTE | 2021-06-01 12:34 | PCSTNOTE ---
Please refer to the Bedside Swallow Evaluation in the EMR. Please note, silent aspiration cannot be ruled out at bedside.
--- NOTE | 2021-06-01 14:59 | PCOTNOTE ---
Attempted to see Patient at this time. Patient was unavailable for OT treatment session at this time due to having and ECHO performed.
--- NOTE | 2021-06-01 16:27 | PM.PNPUL ---
Progress Note: A&P Assessment and Plan (1) Hypoxemia: Code(s): R09.02 - Hypoxemia Status: Acute Assessment and Plan: Double lung transplant 2015 for pulmonary fibrosis, never had problems from a pulmonary perspective for the last 5 years admitted 05/27 with intractable back pain from unstable sacral fracture then developed increased O2 need and abnormal chest CT was started O2 on May 29 using between 1 L/min, Jun 01 increased to 5 L/min with increasing shortness of breath and a hoarse voice She has CT chest showing patchy bilateral infiltrates 05/30 over entire lungs Could be rejection vs infection vs pulmonary edema. She has complex issues and may be better at [facility] so her infiltrates can be managed, may need bronchoscopy to evaluate for infection v rejection. She continued on her anti-rejection medicatons, tacrolimus 0.5 mg BID and prednisone. She has negative COVID serology SARS-CoV 2 on May 27 and again May 31 with negative influenza A & B, WBC is normal now 7.7 BUN was 55, creat 1.8, both of these are lower, 44 and 1.3 BNP was elevated , now on fluid restriction; echo shows normal EF 65-70%, moderate enlargement of the Let atrium Chest CT 05/30/2021 (2) Acute laryngitis: Code(s): J04.0 - Acute laryngitis Status: Acute Assessment and Plan: She has an acute change in her voice starting 2 days ago, no pain; she has a weak voice; does not have sputum, does not have complaints of nasal drainage. She has GERD, and she is on pantoprazole 40 mg day. Viral causes are common ad this might explain the CT with abnormal infiltrates. I will add nasal steroids to see if this helps. If she has nasal inflammation with drinage, nasal steroids may help. Subjective Date/time seen: 06/01/21 16:27 Loren Wells is a 81 year old female double lung transplant in 2016 for pulmonary fibrosis. I am seeing her in follow up for bilateral infiltrates on chest CT and hypoxemia requiring supplemental O2, today on 4 L/min. She is not on supplemental O2 at home. Yesterday, she required 5 L/minute, so she is no worse. She does not have sputum, chest pain, fever, sore throat or other symptoms that suggest an infection. In a patient with a transplant symptoms may be present or may be subtle. The CT scan shows bold changes, not subtle at all, bilateral patchy infiltrates that can represent infection, rejection or pulmonary edema. She has a normal echo; her BNP was elevated May 30 and May 31, see below. She continues to have hoarse voice, no pain with speaking. She is not having nasal drainage down the back of her throat that she is aware of. Echo was completed today -unremarkable. EF 65-70%. Her voice is still weak and like a whisper without discomfort. DATE 05/25 05/27 05/29 05/30 05/31 06/01 WBC 7.7k H/H Na+ 132 132 BUN 44 creat 1.3 CRP 4.3 1.7 ESR 80 54 BNP 3140 2570 Procalcitonin 0.2 She came to the hospital for intractable low back pain with inability to walk. She has a possible unstable sacral fracture and Orthopedics has been asked to see her. Her symptoms became worse after a few chiropractor visits. Review of Systems Review of Systems: All systems reviewed & are unremarkable except as noted in HPI and below (HPI) Exam Narrative: GEN: Alert, oriented, not in distress. Voice is soft like a whisper. HEENT: pupils are equal, EOMI, symmetrical face; NECK: Trachea is midline CHEST: Well healed clamshell incision under breasts across chest; equal air entry, decreased breath sounds with few crackles posteriorly, no wheezes. CV: Regular S1S2 no m/g/r ABD : (+) bowel sounds Extremities : no clubbing, cyanosis, or edema PSYCH: normal thought; voice is a whisper and raspy; gait is not tested Objective Data Vital Signs Vital Signs: Vital Signs - 24
[2021-06-01] MEDS: CYCLOBENZAPRINE HCL 10 MG TABLET PO (20:27)
--- NOTE | 2021-06-01 20:45 | PM.TDS ---
Transfer Discharge Sum: Prov Provider Date of admission: 05/29/21 18:53 Primary care physician: Kishan Suh MD Admitting clinician: Fátima Bergeron MD Consults: 05/31/21 Care Coordination Consult Routine Comment: Reason for Consult:: Home Health Consult to Physician Routine Comment: Consulting Provider: Shavonne Bowman call or contact centre coach/MD group to consult: pulmonary Reason for consultation: increased O2 requirement, hoarseness, no home O2 & now on 5L O2, Lung Tx Has provider been notified: Yes Consult to Physician Routine Comment: Consulting Provider: Kiran Fung call or contact centre coach/MD group to consult: orthopedic surgeon Reason for consultation: sacral fxs with uncontrolled pain, any discharge precautions? Has provider been notified: Yes DS: Admitting Diagnosis Discharge Date 06/01/212044 Admitting Diagnosis Sacral Fractures/PNA/Pulmonary edema DS: Discharge Diagnosis Discharge Diagnosis (1) Gait disturbance: Code(s): R26.9 - Unspecified abnormalities of gait and mobility Status: Acute Assessment and Plan: Secondary to pain Patient with acute sacral fracture Pain management PT OT consult Pedersen catheter disconinued now - patient is lung tx history - at risk for infection. Voiding trial today. plan to discharge to home with and Home health nursing and PT and OT. Patient unable to do her ADLs - at this time. Consulted Orthopedic Surgeon for discharge instructions and outpatient follow up. (2) Closed sacral fracture: Qualifiers: Encounter type: initial encounter Fracture alignment: nondisplaced Zone of sacrum fracture: zone I of sacrum Qualified Code(s): S32.110A - Nondisplaced Zone I fracture of sacrum, initial encounter for closed fracture Code(s): S32.10XA - Unspecified fracture of sacrum, initial encounter for closed fracture Status: Acute Assessment and Plan: Changed her pain medications today, stopped the IV Dilaudid, increased her [place] dose for the [place] pain levels, added scheduled Tylenol dosing as well as scheduled lidocaine patches. We cannot use Motrin or tramadol as she would like to avoid that with her lung transplant history. ordered p.r.n. ice or heating pad to her lower back as needed. Consulted orthopedic surgeon to evaluate for need for back brace or any further interventions, as well as to follow up with patient after discharge. Appreciate their recommendations. patient to get up to chair for meals. PT/OT will need to continue following up with her primary care provider (3) Chronic GERD: Code(s): K21.9 - Gastro-esophageal reflux disease without esophagitis Status: Acute Assessment and Plan: Continue pantoprazole chronic no concerns at this time (4) Atrial flutter: Code(s): I48.92 - Unspecified atrial flutter Status: Acute Assessment and Plan: CONTROLLED Rate control and anticoagulated Continue metoprolol HR 80s, no ectopy chronic no concerns at this time (5) Immunosuppressed status: Code(s): D84.9 - Immunodeficiency, unspecified Status: Acute Assessment and Plan: Her tacrolimus 0.5 mg b.i.d. dosing continues as well as her prednisone 20 mg b.i.d. dosing. (6) Lung transplant status, bilateral: Code(s): Z94.2 - Lung transplant status Status: Acute Assessment and Plan: Continue prednisone, continue tacrolimus. consulted Pulmonary as the patient states she is on no oxygen at home and has not been using any inhalers or nebulizer treatments at home. Today the patient is on 5 L of oxygen and short of breath, and has new hoarseness as well. Humidity was recently added to her nasal cannula oxygen today. Will also check her ESR and CRP as the patient is very concerned for lung transplant rejection. She states that her last lung transplant appointment at [facility] was around April 14, 2021 and her next appointment is June 15
--- NOTE | 2021-06-01 21:11 | PC.NURSE ---
stefanie came to transport patient to [facility] at 2044.
[2021-06-03 16:59] LABS: Tacrolimus Prograf 2.6 mcg/L
== END 2021-06-01 20:45 | disposition short-term general hospital (02) | DRG 551 ==
LOC: ANHED 19:49 → ANH3MED 05-28 06:39
PROVIDERS: Internal Medicine Critical Care Medicine; Nurse Practitioner; Admitting Provider Family Medicine; Emergency Provider Family Medicine; PCP Family Medicine Adolescent Medicine; Visit Provider Nurse Practitioner Adult Health
DX: S32.110A Nondisplaced Zone I fracture of sacrum, initial encounter for closed fracture (principal); J81.0 Acute pulmonary edema; Z94.2 Lung transplant status; I48.92 Unspecified atrial flutter; D84.81 Immunodeficiency due to conditions classified elsewhere; R91.8 Other nonspecific abnormal finding of lung field; R09.02 Hypoxemia; X58.XXXA Exposure to other specified factors, initial encounter; J04.0 Acute laryngitis; Z20.822 Contact with and (suspected) exposure to COVID-19; D64.9 Anemia, unspecified; K21.9 Gastro-esophageal reflux disease without esophagitis; I10 Essential (primary) hypertension; E78.00 Pure hypercholesterolemia, unspecified; E87.5 Hyperkalemia; Z85.3 Personal history of malignant neoplasm of breast; Z85.828 Personal history of other malignant neoplasm of skin
CPT/HCPCS: 36415; 71045; 71260; 72131; 74177; 80048; 80053; 80197; 81001; 82948; 83605; 83735; 83880; 84145; 85025; 85027; 85652; 86140; 87040; 87081; 87086; 87426; 87804; 87880; 92610; 93306; 94618; 94640; 96361; 96374; 96375; 96376; 97110; 97116; 97162; 97165; 97530; 99285; A9270; C9803; G0378; J1100; J1170; J2405; J7030; J7512; Q9967; U0003; U0005

== ENCOUNTER 2021-11-27 20:14 | Emergency (ER) | payer OTHER, MEDICARE, SELFPAY ==
[2021-11-27] VITALS (8 sets, daily range): BP systolic 114–146; BP diastolic 65–73; PULSE 90–101; RESP 16–40; TEMP 36.4; O2SAT 49–97
--- NOTE | 2021-11-27 20:21 | ED.GENADULT ---
HPI - General Adult General Chief complaint: Unspecified Stated complaint: LOW O2 SATS Time Seen by Provider: 11/27/21 20:21 Source: family and EMS Mode of arrival: EMS Limitations: clinical condition History of Present Illness HPI narrative: 81 years old white female was transferred to [facility] 3 hours ago, noticed to have shortness of breath on arrival. Patient is a DNR as signed by patient, not Dr. detention was not sure about the legal point at this time and called 911. Patient family states they only wanted comfort measures done at this time. Patient is not responsive to sternal rub and she had 2.5 of morphine before arrival. Idiopathic pulmonary fibrosis, status post bilateral lung transplantation, transverse sternotomy, nonunion/subluxation, chronic, post treatment transbronchial biopsies, posttreatment bronchopulmonary infection, chronic lung allograft dysfunction/, diabetes, coronary artery disease, hyperlipidemia, posttreatment anemia, multifactorial, ductal carcinoma in situ of the left breast, CKD, posttreatment atrial flutter Related Data Home Medications Medication Instructions Recorded Confirmed apixaban 5 mg tablet (Eliquis) 2.5 mg PO BID 03/06/20 10/02/21 metoprolol tartrate 25 mg tablet 12.5 mg PO BID 03/06/20 10/02/21 pantoprazole 40 mg tablet,delayed 40 mg PO DAILY 03/06/20 10/02/21 release (Protonix) sulfamethoxazole 800 1 tablet PO 3XW 03/06/20 10/02/21 mg-trimethoprim 160 mg tablet (Bactrim DS) tacrolimus 0.5 mg capsule, See Rx Instructions .Route .COMPLEX 03/06/20 10/02/21 immediate-release amoxicillin 500 mg capsule 500 mg PO DAILY 05/22/21 10/02/21 cholecalciferol (vitamin D3) 10 10 mcg PO DAILY 05/22/21 10/02/21 mcg (400 unit) capsule acetaminophen 325 mg capsule See Rx Instructions PO Q6H PRN Pain 07/10/21 10/02/21 multivitamin (Daily Multi-Vitamin 1 tablet PO DAILY 07/10/21 10/02/21 tablet) prednisone 10 mg tablet 10 mg PO DAILY 08/04/21 10/02/21 Allergies Allergy/AdvReac Type Severity Reaction Status Date / Time NSAIDS (Non-Steroidal AdvReac Other Verified 10/02/21 09:04 Anti-Inflamma Review of Systems Review of Systems: ROS unobtainable: Yes unobtainable due to medical condition PMFSH Past Medical History Medical History Abnormal colonoscopy 03/29 2 polyps Anemia recieves iron infusions weekly Atrial flutter Breast CA Chronic GERD Closed sacral fracture History of blood transfusion History of colon cancer HTN (hypertension) Hypercholesterolemia Immunosuppressed status Pulmonary fibrosis Skin cancer Surgical History Surgical History History of lumpectomy left breast 1998 History of right hemicolectomy 04/27 cancer Lung transplant status, bilateral 2015 Family History Family History Mother Diabetes mellitus Breast cancer Sibling Diabetes mellitus Father No problems noted. Social History Social History Smoking status: Never smoker Second hand tobacco smoke exposure: No Alcohol intake: never Substance use: never Substance use type: does not use Gender identity (if verbalized by the patient): Female Sexual Orientation (if Verbalized by the Patient): Straight or Heterosexual Spiritual care concerns: No Agree to blood products: Yes Course Course Emergency Course: Patient's family including the , the son and the [id number] requested comfort measures only. Also requested patient to go back to [facility] because that was her wishes to at the [facility]. The family were offered hospitalization but they declined Critical Care Time Critical Care Time Critical Care Time: Yes Total Critical Care Time: 40 Discharge Plan Discharge Clinical Impression: Acute respiratory failure, C
== END 2021-11-27 23:23 ==
PROVIDERS: Emergency Provider Emergency Medicine; PCP Internal Medicine
DX: J96.00 Acute respiratory failure, unspecified whether with hypoxia or hypercapnia (principal); Z51.5 Encounter for palliative care; J84.112 Idiopathic pulmonary fibrosis; I25.10 Atherosclerotic heart disease of native coronary artery without angina pectoris; E78.5 Hyperlipidemia, unspecified; E11.22 Type 2 diabetes mellitus with diabetic chronic kidney disease; I12.9 Hypertensive chronic kidney disease with stage 1 through stage 4 chronic kidney disease, or unspecified chronic kidney disease; N18.9 Chronic kidney disease, unspecified; D64.9 Anemia, unspecified; I48.92 Unspecified atrial flutter; K21.9 Gastro-esophageal reflux disease without esophagitis; Z66 Do not resuscitate; Z94.2 Lung transplant status; Z85.3 Personal history of malignant neoplasm of breast; Z85.038 Personal history of other malignant neoplasm of large intestine; Z85.828 Personal history of other malignant neoplasm of skin; Z90.49 Acquired absence of other specified parts of digestive tract; Z79.01 Long term (current) use of anticoagulants
CPT/HCPCS: 99281